=== PATIENT | female | born 1950 | race Caucasian/White ===

== ENCOUNTER 2016-07-01 11:20 | Observation (INO) | payer MEDICARE, OTHER ==
[2016-07-01] MEDS ORDERED: IPRATROPIUM-ALBUTEROL 3 ML NEB INHALATION STA (11:48)
[2016-07-01] MEDS ORDERED: methylPREDNISolone SOD SUCCI 125 MG/2 ML VIAL IV STA (11:48)
[2016-07-01] MEDS ORDERED: NITROGLYCERIN OINT 1 INCH/GM PACKET TOPICAL STA (11:48)
[2016-07-01] MEDS ORDERED: ASPIRIN 81 MG CHEW PO STA (11:48)
[2016-07-01] MEDS ORDERED: NITROGLYCERIN SL TABS 0.4 MG TAB SUBLINGUAL STA (11:49)
--- NOTE | 2016-07-01 11:52 | ED ---
General Adult HPI - General Chief complaint: Shortness of Breath Stated complaint: Sob/weak/dizzy Time Seen by Provider: 07/01/16 11:30 Source: patient, family, RN notes reviewed Mode of arrival: wheelchair - History of Present Illness Initial comments: This is a 65-year-old female who presents to the emergency department complaining of difficulty breathing and chest pain. Patient states she has a past medical history significant for COPD as well as high cholesterol and she states she also has a strong family history for heart disease. Patient states last night she started having difficulty breathing and having a cough. Patient states she started having epigastric pain late in the evening and this morning about 2 hours prior to arrival she started feeling significant chest heaviness. Patient denies any radiation of that heaviness. Patient denies any nausea. Patient denies any diaphoresis. Patient states she no longer has any epigastric tenderness. Patient denies any headache patient states she is a little bit lightheaded. Patient states she is supposed to have a nebulizer at home but her insurance won't pay for it so she only has an inhaler. Patient states yesterday the inhaler helped initially but is no longer helping and now she has chest pain. Patient states she continues to smoke. - Related Data Home Medications Medication Instructions Recorded Confirmed Albuterol Inhaler [Ventolin Hfa 2 puff INHALATION RT-Q6H PRN 07/01/16 07/01/16 Inhaler] Atorvastatin Calcium [Atorvastatin 20 mg PO DAILY 07/01/16 07/01/16 Calcium] Budesonide-Formot 160-4.5 Mcg 2 puff INHALATION RT-BID 07/01/16 07/01/16 [Symbicort 160-4.5 Mcg Inhaler] Escitalopram [Lexapro] 20 mg PO HS 07/01/16 07/01/16 Meloxicam [Meloxicam] 15 mg PO DAILY 07/01/16 07/01/16 Allergies Allergy/AdvReac Type Severity Reaction Status Date / Time codeine Allergy Nausea & Verified 07/01/16 12:04 Vomiting Tetanus Vaccines and Toxoid Allergy Swelling Verified 07/01/16 12:04 [Tetanus Vaccines & Toxoid] Review of Systems ROS Statement: Those systems with pertinent positive or pertinent negative responses have been documented in the HPI. ROS Other: All systems not noted in ROS Statement are negative. Past Medical History Past Medical History: Asthma, COPD, Hyperlipidemia Additional Past Medical History / Comment(s): Degenerative joint disease History of Any Multi-Drug Resistant Organisms: None Reported Past Surgical History: Appendectomy, Hysterectomy Past Psychological History: Depression Smoking Status: Current every day smoker Past Alcohol Use History: None Reported Past Drug Use History: None Reported - Past Family History Father Family Medical History: Diabetes Mellitus Mother Family Medical History: Diabetes Mellitus, Hypertension General Exam - General Exam Comments Initial Comments: GENERAL: Patient is well-developed and well-nourished. Patient is nontoxic and well- hydrated and is in mild distress. ENT: Neck is soft and supple. No significant lymphadenopathy is noted. Oropharynx is clear. Moist mucous membranes. Neck has full range of motion without eliciting any pain. EYES: The sclera were anicteric and conjunctiva were pink and moist. Extraocular movements were intact and pupils were equal round and reactive to light. Eyelids were unremarkable. PULMONARY: She has diminished breath sounds throughout CARDIOVASCULAR: There is a regular rate and rhythm without any murmurs gallops or rubs. ABDOMEN: Soft and nontender with normal bowel sounds. No palpable organomegaly was noted. There is no palpable pulsatile mass. SKIN: Skin is clear with no lesions or rashes and otherwise unremarkable. NEUROLOGIC: Patient is alert and oriented x3. Cranial nerves II through XII are grossly intact. Motor and sensory are also intact. Normal speech, volume and content. Symmetrical smile. MUSCULOSKELETAL: Normal extremities with adequate strength and full range of motion. LYMPHATICS: No significant lymphadenopathy is noted PSYCHIATRIC: Normal psychiatric evaluation. Course Vital Signs 07/01/16 07/01/16 07/01/16 11:26 12:24 12:25 Temperature 96.9 F L Pulse Rate 76 58 L 63 Respiratory 26 H 22 Rate Blood Pressure 149/69 167/73 O2 Sat by Pulse 100 100 Oximetry 07/01/16 12:36 Temperature Pulse Rate 60 Respiratory Rate Blood Pressure O2 Sat by Pulse Oximetry Medical Decision Making - Medical Decision Making EKG shows sinus rhythm with frequent PVCs in a bigeminy pattern. Patient's rate is 79 bpm. It was on a 22 QRS is 90 QT interval 392 QTC is 449. Patient' s EKG shows no ST segment elevation or depression or T wave abnormalities are noted. - Lab Data Result diagrams: 07/01/16 12:25 07/01/16 12:25 Lab Results 07/01/16 07/01/16 07/01/16 Range/Units 12:25 12:25 12:25 WBC 4.8 (3.8-10.6) k/uL RBC 4.76 (3.80-5.40) m/uL Hgb 15.7 (11.4-16.0) gm/dL Hct 47.0 H (34.0-46.0) % MCV 98.7 (80.0-100.0) fL MCH 33.1 (25.0-35.0) pg MCHC 33.5 (31.0-37.0) g/dL RDW 12.8 (11.5-15.5) % Plt Count 212 (150-450) k/uL Neutrophils % 57 % Lymphocytes % 28 % Monocytes % 5 % Eosinophils % 6 % Basophils % 1 % Neutrophils # 2.7 (1.3-7.7) k/uL Lymphocytes # 1.3 (1.0-4.8) k/uL Monocytes # 0.2 (0-1.0) k/uL Eosinophils # 0.3 (0-0.7) k/uL Basophils # 0.1 (0-0.2) k/uL PT (9.0-12.0) sec INR (<1.1) APTT (22.0-30.0) sec Sodium 135 L (137-145) mmol/L Potassium 4.6 (3.5-5.1) mmol/L Chloride 102 (98-107) mmol/L Carbon Dioxide 22 (22-30) mmol/L Anion Gap 11 mmol/L BUN 8 (7-17) mg/dL Creatinine 0.78 (0.52-1.04) mg/dL Est GFR (MDRD) Af Amer >60 (>60 ml/min/1.73 sqM) Est GFR (MDRD) Non-Af >60 (>60 ml/min/1.73 sqM) Glucose 93 (74-99) mg/dL Calcium 10.0 (8.4-10.2) mg/dL Total Bilirubin 1.8 H (0.2-1.3) mg/dL AST 26 (14-36) U/L ALT 25 (9-52) U/L Alkaline Phosphatase 78 (38-126) U/L Total Creatine Kinase 68 (30-135) U/L CK-MB (CK-2) 0.6 (0.0-2.4) ng/mL CK-MB (CK-2) Rel Index 0.9 Troponin I <0.012 (0.000-0.034) ng/mL Total Protein 6.8 (6.3-8.2) g/dL Albumin 4.2 (3.5-5.0) g/dL 07/01/16 Range/Units 12:25 WBC (3.8-10.6) k/uL RBC (3.80-5.40) m/uL Hgb (11.4-16.0) gm/dL Hct (34.0-46.0) % MCV (80.0-100.0) fL MCH (25.0-35.0) pg MCHC (31.0-37.0) g/dL RDW (11.5-15.5) % Plt Count (150-450) k/uL Neutrophils % % Lymphocytes % % Monocytes % % Eosinophils % % Basophils % % Neutrophils # (1.3-7.7) k/uL Lymphocytes # (1.0-4.8) k/uL Monocytes # (0-1.0) k/uL Eosinophils # (0-0.7) k/uL Basophils # (0-0.2) k/uL PT 10.9 (9.0-12.0) sec INR 1.1 (<1.1) APTT 22.2 (22.0-30.0) sec Sodium (137-145) mmol/L Potassium (3.5-5.1) mmol/L Chloride (98-107) mmol/L Carbon Dioxide (22-30) mmol/L Anion Gap mmol/L BUN (7-17) mg/dL Creatinine (0.52-1.04) mg/dL Est GFR (MDRD) Af Amer (>60 ml/min/1.73 sqM) Est GFR (MDRD) Non-Af (>60 ml/min/1.73 sqM) Glucose (74-99) mg/dL Calcium (8.4-10.2) mg/dL Total Bilirubin (0.2-1.3) mg/dL AST (14-36) U/L ALT (9-52) U/L Alkaline Phosphatase (38-126) U/L Total Creatine Kinase (30-135) U/L CK-MB (CK-2) (0.0-2.4) ng/mL CK-MB (CK-2) Rel Index Troponin I (0.000-0.034) ng/mL Total Protein (6.3-8.2) g/dL Albumin (3.5-5.0) g/dL Critical Care Time Critical Care Time: Yes Total Critical Care Time: 35 Disposition Clinical Impression: Unstable angina, COPD with acute exacerbation Disposition: ADMITTED IP TO THIS HOSP Referrals: Lyn Durán MD [Primary Care Provider] - 1-2 days Time of Disposition: 14:02
[2016-07-01 12:38] LABS: Basophils # (A) 0.1 k/uL (0-0.2); Basophils % (A) 1 %; CH 33.9; CHCM 34.5; Eosinophils # (A) 0.3 k/uL (0-0.7); Eosinophils % (A) 6 %; HDW 2.21; HGB 15.7 gm/dL (11.4-16.0); Luc # (Auto) 0.13; Luc % (Auto) 3; Lymphocytes # (A) 1.3 k/uL (1.0-4.8); Lymphocytes % (A) 28 %; MCH 33.1 pg (25.0-35.0); MCHC 33.5 g/dL (31.0-37.0); MCV 98.7 fL (80.0-100.0); Mean Platelet Volume 7.1; Monocytes # (A) 0.2 k/uL (0-1.0); Monocytes % (A) 5 %; Neutrophils # (A) 2.7 k/uL (1.3-7.7); Neutrophils % (A) 57 %; RBC 4.76 m/uL (3.80-5.40); RDW 12.8 % (11.5-15.5); WBC 4.8 k/uL (3.8-10.6); WBC (Perox) 5.31
[2016-07-01 12:47] LABS: ALT 25 U/L (9-52); AST 26 U/L (14-36); Alkaline Phosphatase 78 U/L (38-126); Anion Gap 11 mmol/L; Blood Urea Nitrogen 8 mg/dL (7-17); Carbon Dioxide 22 mmol/L (22-30); Chloride 102 mmol/L (98-107); Glucose 93 mg/dL (74-99); Non-African American GFR(MDRD) >60 (>60 ml/min/1.73 sqM); Potassium 4.6 mmol/L (3.5-5.1); Sodium 135 mmol/L (137-145); Total Bilirubin 1.8 mg/dL (0.2-1.3); Total Protein 6.8 g/dL (6.3-8.2)
[2016-07-01 12:50] LABS: INR 1.1 (<1.1); Partial Thromboplastin Time 22.2 sec (22.0-30.0); Prothrombin Time 10.9 sec (9.0-12.0)
--- NOTE | 2016-07-01 13:01 | XR ---
EXAMINATION TYPE: XR chest 2V DATE OF EXAM: 07/01/2016 12:58 PM COMPARISON: 03/29/2016 HISTORY: Shortness of breath FINDINGS: The lungs are clear and there is no pneumothorax, pleural effusion, or focal pneumonia. Arthropathy of the AC joints. Hyperinflation suggests COPD. Hypertrophic and degenerative change of the spine. IMPRESSION: 1. No acute process.
[2016-07-01 13:08] LABS: Creatine Kinase 68 U/L (30-135)
[2016-07-01 13:22] LABS: Creatine Kinase MB 0.6 ng/mL (0.0-2.4); Troponin I <0.012 ng/mL (0.000-0.034)
[2016-07-01] MEDS ORDERED: NITROGLYCERIN SL TABS 0.4 MG TAB SUBLINGUAL PRN (14:08)
[2016-07-01] MEDS ORDERED: HEPARIN SODIUM,PORCINE 5,000 UNIT/ML 1 ML VIAL IV ONE (14:11)
[2016-07-01] MEDS ORDERED: HEPARIN SODIUM,PORCINE/D5W PMX 25,000 UNIT in DEXTROSE/WATER 1 500ML.BAG IV SCH (14:15)
[2016-07-01] MEDS ORDERED: HEPARIN SODIUM,PORCINE 5,000 UNIT/ML 1 ML VIAL IV PRN (14:17)
[2016-07-01] MEDS: IPRATROPIUM-ALBUTEROL 3 ML NEB INHALATION SCH ×2 (15:22→19:47)
[2016-07-01 19:26] LABS: Creatine Kinase 46 U/L (30-135)
[2016-07-01] MEDS: methylPREDNISolone SOD SUCCI 125 MG/2 ML VIAL IV SCH (19:38)
[2016-07-01 19:39] LABS: Creatine Kinase MB 0.4 ng/mL (0.0-2.4); Troponin I <0.012 ng/mL (0.000-0.034)
[2016-07-01] MEDS ORDERED: IPRATROPIUM-ALBUTEROL 3 ML NEB INHALATION PRN (20:01)
[2016-07-02] MEDS: methylPREDNISolone SOD SUCCI 125 MG/2 ML VIAL IV SCH ×4 (01:07→20:41)
[2016-07-02 01:22] LABS: Creatine Kinase 45 U/L (30-135)
[2016-07-02 01:35] LABS: Creatine Kinase MB 0.6 ng/mL (0.0-2.4); Troponin I <0.012 ng/mL (0.000-0.034)
[2016-07-02 07:26] LABS: Cholesterol 143 mg/dL (<200); HDL Cholesterol 87 mg/dL (40-60); Triglycerides 42 mg/dL (<150)
[2016-07-02] MEDS: IPRATROPIUM-ALBUTEROL 3 ML NEB INHALATION SCH ×4 (08:50→20:58)
[2016-07-02] MEDS: ASPIRIN 325 MG TAB PO SCH (10:04)
[2016-07-02] MEDS: ACETAMINOPHEN TAB 325 MG TAB PO PRN (10:50)
[2016-07-02] MEDS ORDERED: CARVEDILOL 3.125 MG TAB PO SCH (17:30)
--- NOTE | 2016-07-02 19:27 | P.HPIM ---
History of Present Illness H&P Date: 07/02/16 Chief Complaint: Chest pain 65-year-old female with history of tobacco use comes into the hospital with complaints of chest pain episode that initially got her concerned 48 hours prior to admission. Patient was apparently resting in bed stated to have a pressure in her midsternal region was associated with some palpitations and some numbness across her arms. That pain went away however patient continued to have intermittent episodes of chest pressure over the last 24 hours with concern for myocardial and a pain patient came in the hospital for further evaluation. Patient does state that there is one kind of pain that is worsened with deep breathing and cough. However during the hospital physician patient an episode of chest pain was given nitroglycerin sublingual which relieved the pain immediately. In the ER EKG was reviewed did not have any ST-T wave changes however patient was noted to have multiple PVCs. Patient states to have premature heart disease in the family continues to smoke at baseline patient is only able to walk about 1 block. Patient apparently has had a stress test 2 years ago however was not able to attain her maximum heart rate patient apparently stopped the stress test and left against medical advise at that time Review of Systems All systems: negative (Noted in HPI) Past Medical History Past Medical History: Asthma, COPD, Hyperlipidemia Additional Past Medical History / Comment(s): Degenerative joint disease History of Any Multi-Drug Resistant Organisms: None Reported Past Surgical History: Appendectomy, Hysterectomy, Tonsillectomy Past Anesthesia/Blood Transfusion Reactions: No Reported Reaction Past Psychological History: Depression Additional Psychological History / Comment(s): AT TIME OF THIS ADMIT,PT DENIES FEELING DEPRESSED, NO SUICIDAL THOUGHTS. PT RECENTLY MOVED TO [facility]. Smoking Status: Current every day smoker Past Alcohol Use History: None Reported Additional Past Alcohol Use History / Comment(s): STARTED SMOKING 1978, SMOKES AVER 1 PPD Past Drug Use History: None Reported - Past Family History Father Family Medical History: Diabetes Mellitus Mother Family Medical History: Diabetes Mellitus, Hypertension Medications and Allergies Home Medications Medication Instructions Recorded Confirmed Type Albuterol Inhaler [Ventolin Hfa 2 puff INHALATION RT-Q6H PRN 07/01/16 07/01/16 History Inhaler] Atorvastatin Calcium [Atorvastatin 20 mg PO DAILY 07/01/16 07/01/16 History Calcium] Budesonide-Formot 160-4.5 Mcg 2 puff INHALATION RT-BID 07/01/16 07/01/16 History [Symbicort 160-4.5 Mcg Inhaler] Escitalopram [Lexapro] 20 mg PO HS 07/01/16 07/01/16 History Meloxicam [Meloxicam] 15 mg PO DAILY 07/01/16 07/01/16 History Allergies Allergy/AdvReac Type Severity Reaction Status Date / Time codeine Allergy Nausea & Verified 07/01/16 12:04 Vomiting Tetanus Vaccines and Toxoid Allergy Swelling Verified 07/01/16 12:04 [Tetanus Vaccines & Toxoid] Physical Exam Vitals: Vital Signs Temp Pulse Pulse Resp BP BP Pulse Ox 07/02/16 15:43 98.7 F 70 16 106/53 95 07/02/16 14:41 68 07/02/16 14:25 68 07/02/16 11:30 99 F 64 16 120/48 95 07/02/16 09:07 72 07/02/16 08:53 72 07/02/16 07:44 98.6 F 73 16 114/54 93 L 07/02/16 04:17 98.0 F 77 16 102/55 96 07/02/16 03:53 96 16 07/02/16 00:02 98.2 F 80 16 108/57 97 07/02/16 00:00 70 16 07/01/16 20:30 97.7 F 69 16 127/60 96 07/01/16 19:59 76 07/01/16 19:47 75 07/01/16 19:32 70 14 113/59 100 Intake and Output 07/02/16 07/02/16 07/02/16 06:59 14:59 22:59 Intake Total 236 Balance 236 Intake: Oral 236 Other: Voiding Method Toilet Toilet Toilet Physical exam Gen. appearance oriented 3 in no distress Neck is supple no JVD Lungs good air movement diffuse expiratory wheezing appreciated intermittently Heart S1-S2 heard regular rate and rhythm no murmurs appreciated Abdomen is soft nontender no organomegaly bowel sounds are intact Neurologically cranial nerves II-12 grossly intact no focal motor or sensory deficits noted Skin no abnormalities appreciated Results CBC & Chem 7: 07/01/16 12:25 07/01/16 12:25 Labs: Abnormal Lab Results - Last 24 Hours (Table) 07/01/16 07/02/16 07/02/16 Range/Units 21:54 06:30 06:30 APTT 48.6 H 43.0 H (22.0-30.0) sec HDL Cholesterol 87 H (40-60) mg/dL Thrombosis Risk Factor Assmnt - Choose All That Apply Any of the Below Risk Factors Present?: Yes Each Factor Represents 1 point: Abnormal pulmonary function (COPD) Other Risk Factors: Yes Each Risk Factor Represents 2 Points: Age 61-74 years Other congenital or acquired thrombophilia - If yes, enter type in comment: No Thrombosis Risk Factor Assessment Total Risk Factor Score: 3 Thrombosis Risk Factor Assessment Level: Moderate Risk Assessment and Plan Plan: #1 atypical chest pain rule out ACS #2 acute 8 mild exacerbation of COPD #3 dyslipidemia #4 ongoing tobacco use #5 history of hypertension #6 anxiety Plan Await cardiology recs. There appears to be some typical nature of the initial chest pain however current pain appears to be atypical and pleuritic in nature. We'll give the patient a dose of Solu-Medrol. Continue ongoing care. Home medication will be reconciled. Patient is currently on IV heparin. GI prophylaxis will be initiated.
[2016-07-02] MEDS ORDERED: HEPARIN SODIUM,PORCINE 5,000 UNIT/ML 1 ML VIAL IV PRN (20:17)
[2016-07-02] MEDS ORDERED: REGADENOSON 0.4 MG/5 ML SYRINGE IV ONE (20:30)
--- NOTE | 2016-07-02 20:49 | CONS ---
DATE OF CONSULTATION: Ashley is a 65-year-old female who presented with chest discomfort that started when she was resting. This was associated with shortness of breath and pounding in the chest. This may have lasted all night, but it was relieved with nitroglycerin. Two sets of cardiac enzymes are normal. Her 12-lead ECG shows sinus mechanism with ventricular bigeminy. The PVCs have an upright QRS in the inferior leads, left bundle branch block morphology with a notching on the down slope and upright QRS in lead I, but negative in aVL. It is slightly more negative in aVR than in aVL. She is completely pain-free at this time. PAST MEDICAL HISTORY: She is a current smoker with a past history of COPD. She also has a history of dyslipidemia and is on atorvastatin. FAMILY HISTORY: Premature coronary disease, diabetes. SOCIAL HISTORY: No alcohol use. She continues to smoke. SURGICAL HISTORY: 1. Appendectomy. 2. Hysterectomy. 3. Tonsillectomy. Medications at home included atorvastatin and inhalers. ALLERGIES: CODEINE and TETANUS VACCINE. On examination, [place] [address] [place]. Heart rate 69 beats per minute. Afebrile. Head and neck examination is normal. Breath sounds are reduced bilaterally, especially at the bases. Heart sounds S1, S2 are normal. Abdomen is soft, nontender. Extremities are warm. No edema. IMPRESSION: 1. Epigastric and midsternal chest discomfort that was relieved with nitroglycerin. 2. Pounding in the chest with ventricular bigeminy without protracted premature ventricular contractions. 3. Current history of smoking. 4. Normal cardiac enzymes so far. SUGGEST: Proceed with Lexiscan Cardiolite stress test tomorrow. If this is normal, then one would have to implicate the ventricular bigeminy as the cause of her discomfort.
[2016-07-02] MEDS: SYMBICORT 160-4.5 MCG INHALER INHALATION SCH (20:58)
[2016-07-03] MEDS: methylPREDNISolone SOD SUCCI 40 MG/ML 1 ML VIAL IV SCH ×2 (01:28→10:57)
[2016-07-03] MEDS: IPRATROPIUM-ALBUTEROL 3 ML NEB INHALATION SCH (07:27)
[2016-07-03] MEDS: SYMBICORT 160-4.5 MCG INHALER INHALATION SCH (07:27)
[2016-07-03] MEDS ORDERED: AMINOPHYLLINE 500 MG/20 ML VIAL IV PRN (08:00)
[2016-07-03 08:43] VITALS: RESP 18
[2016-07-03] MEDS ORDERED: NICOTINE 14MG/24HR PATCH TRANSDERM SCH (09:00)
--- NOTE | 2016-07-03 10:49 | NM ---
EXAMINATION TYPE: NM stress lexiscan cardiolite DATE OF EXAM: 07/03/2016 10:45 AM COMPARISON: NONE HISTORY: Precordial chest pain TECHNIQUE: After the intravenous administration of 11.0 mCi Tc 99m Sestamibi - Cardiolite resting SP ECT images acquired 45 minutes post injection. The patient received 0.4mg Lexiscan, 27.4 mCi Tc 99m Sestamibi - Stress images obtained [address] injection FINDINGS: Review of stress and rest SPECT images demonstrates no distinct perfusion abnormality. Gated analysi s shows normal wall motion with an estimated left ventricular ejection fraction of 46 %. IMPRESSION: No scintigraphic evidence for reversible ischemia.
[2016-07-03] MEDS: ASPIRIN 325 MG TAB PO SCH (10:56)
[2016-07-03] MEDS: ACETAMINOPHEN TAB 325 MG TAB PO PRN (10:57)
--- NOTE | 2016-07-03 11:28 | EST ---
DATE OF SERVICE: 07/03/2016 AGE: 65Y SEX: F HT: 64" WT: 140 lbs. Lexiscan Cardiolite Stress Test *Heart Rate Blood Pressure *Rest: 60 Rest: 131/69 * *Max. Achieved: 112 Maximum BP: 153/74 85% PMHR: 133 100% PMHR: 157 *METS: - INDICATIONS: Chest pain. MEDICATIONS: - The test is being done to evaluate chest pains and shortness of breath. Baseline EKG showed sinus rhythm with normal OK interval and QRS duration, occasional PVCs were noted. A standard dose of Lexiscan was infused. EKGs taken during and after the infusion showed mild ST-T changes in the inferolateral leads, which are also present on the resting EKG. Patient did not experience any chest pain. FINAL IMPRESSION: 1. Nondiagnostic Lexiscan stress test because of baseline EKG abnormalities. 2. Report on the nuclear images to be given by the radiologist.
[2016-07-03 11:43] VITALS: BP 125/48; TEMP 97.7
[2016-07-03 12:08] VITALS: PULSE 59
[2016-07-03] MEDS ORDERED: REGADENOSON 0.4 MG/5 ML SYRINGE IV ONE (13:54)
--- NOTE | 2016-07-03 20:44 | P.DS ---
Providers Date of admission: 07/01/16 14:08 Attending physician: Sahra Rinaldi Primary care physician: Lyn [facility] Course: Chief Complaint: Chest pain 65-year-old female with history of tobacco use comes into the hospital with complaints of chest pain episode that initially got her concerned 48 hours prior to admission. Patient was apparently resting in bed stated to have a pressure in her midsternal region was associated with some palpitations and some numbness across her arms. That pain went away however patient continued to have intermittent episodes of chest pressure over the last 24 hours with concern for myocardial and a pain patient came in the hospital for further evaluation. Patient does state that there is one kind of pain that is worsened with deep breathing and cough. However during the hospital physician patient an episode of chest pain was given nitroglycerin sublingual which relieved the pain immediately. In the ER EKG was reviewed did not have any ST-T wave changes however patient was noted to have multiple PVCs. Patient states to have premature heart disease in the family continues to smoke at baseline patient is only able to walk about 1 block. Patient apparently has had a stress test 2 years ago however was not able to attain her maximum heart rate patient apparently stopped the stress test and left against medical advise at that time Physical Exam Vitals: Physical exam Gen. appearance oriented 3 in no distress Neck is supple no JVD Lungs good air movement diffuse expiratory wheezing appreciated intermittently Heart S1-S2 heard regular rate and rhythm no murmurs appreciated Abdomen is soft nontender no organomegaly bowel sounds are intact Neurologically cranial nerves II-12 grossly intact no focal motor or sensory deficits noted Skin no abnormalities appreciated Assessment and Plan Plan: #1 atypical chest pain rule out ACS #2 acute 8 mild exacerbation of COPD #3 dyslipidemia #4 ongoing tobacco use #5 history of hypertension #6 anxiety Pt was symptom free on the day of discharge Underwent a stress test, lexiscan, negative. recommended to follow up with Dr Polo for underlying tachycardia for holter monitering outpatient basis. Discharged in a stable condition . Plan - Discharge Summary Discharge Medication List Albuterol Inhaler [Ventolin Hfa Inhaler] 2 puff INHALATION RT-Q6H PRN 07/01/16 [ History] Atorvastatin Calcium 20 mg PO DAILY 07/01/16 [History] Budesonide-Formot 160-4.5 Mcg [Symbicort 160-4.5 Mcg Inhaler] 2 puff INHALATION RT-BID 07/01/16 [History] Escitalopram [Lexapro] 20 mg PO HS 07/01/16 [History] Meloxicam 15 mg PO DAILY 07/01/16 [History] Follow up Appointment(s)/Referral(s): Jose Polo MD [STAFF PHYSICIAN] - 4 Weeks Lyn Durán MD [Primary Care Provider] - 1-2 days Patient Instructions/Handouts: Chest Pain (DC) Activity/Diet/Wound Care/Special Instructions: [facility] a 48 hour holter monitor. pt is to brick picker monitor in 3 weeks between Jul 21-2016. follow up with Dr. Polo in 4 weeks. Discharge Disposition: HOME SELF-CARE
== END 2016-07-03 17:00 | disposition home or self-care (01) ==
LOC: EC 11:20 → 3OBS 14:08
PROVIDERS: ADMIT Hospitalist; ATTEND Hospitalist
DX: R07.89 Other chest pain (principal); J44.1 Chronic obstructive pulmonary disease with (acute) exacerbation; J45.909 Unspecified asthma, uncomplicated; E78.5 Hyperlipidemia, unspecified; F17.200 Nicotine dependence, unspecified, uncomplicated; I10 Essential (primary) hypertension; F41.9 Anxiety disorder, unspecified; E78.00 Pure hypercholesterolemia, unspecified; F32.9 Major depressive disorder, single episode, unspecified; Z79.899 Other long term (current) drug therapy; Z79.51 Long term (current) use of inhaled steroids; Z88.5 Allergy status to narcotic agent; Z88.7 Allergy status to serum and vaccine; Z82.49 Family history of ischemic heart disease and other diseases of the circulatory system; Z83.3 Family history of diabetes mellitus; I44.7 Left bundle-branch block, unspecified; R00.8 Other abnormalities of heart beat
CPT/HCPCS: 96376 ×5; 96375 ×2; 99291 ×2; 93005 ×2; 96366 ×4; 96365; 36415; 94640 ×5; 94760; 93017; 84439; 80061; 80053; 84443; 82550 ×2; 82553 ×2; 84484 ×2; 85025; 85610; 85730 ×2; 71020; 78452; G0378 ×3; A9500; S4990; J1644 ×2; J2920; J2930 ×2; J2785

== ENCOUNTER 2016-07-05 08:37 | Emergency (ER) | payer MEDICARE, OTHER ==
--- NOTE | 2016-07-05 09:09 | ED ---
Chest Pain HPI - General Chief Complaint: Chest Pain Stated Complaint: Chest Pain Time Seen by Provider: 07/05/16 08:45 Source: patient, RN notes reviewed Mode of arrival: EMS Limitations: no limitations - History of Present Illness Initial Comments: This patient is a 65-year-old woman presenting with substernal chest pain. She had been admitted here for the same approximate 4 days ago, was seen by cardiology and had a stress test and discharged 2 days ago. She states that the pain had recurred this morning a number of hours ago, and that when it didn' t resolve she decided to be seen here again. The patient describes the pain as heavy, constant, moderate, and without worsening or relieving factors. Patient denies any angina type symptoms accompanying the pain. MD Complaint: chest pain Onset/Timin -: hour(s) Onset: during rest Pain Location: substernal Pain Radiation: none Severity: moderate Quality: heaviness Consistency: constant Improves With: nothing Worsens With: nothing - Related Data Home Medications Medication Instructions Recorded Confirmed Albuterol Inhaler [Ventolin Hfa 2 puff INHALATION RT-Q6H PRN 07/01/16 07/01/16 Inhaler] Atorvastatin Calcium 20 mg PO DAILY 07/01/16 07/01/16 Budesonide-Formot 160-4.5 Mcg 2 puff INHALATION RT-BID 07/01/16 07/01/16 [Symbicort 160-4.5 Mcg Inhaler] Escitalopram [Lexapro] 20 mg PO HS 07/01/16 07/01/16 Meloxicam 15 mg PO DAILY 07/01/16 07/01/16 Previous Rx's Medication Instructions Recorded Nitroglycerin Sl Tabs [Nitrostat] 0.4 mg SUBLINGUAL Q5M PRN #25 tab 07/05/16 Allergies Allergy/AdvReac Type Severity Reaction Status Date / Time codeine Allergy Nausea & Verified 07/05/16 08:43 Vomiting Tetanus Vaccines and Toxoid Allergy Swelling Verified 07/05/16 08:43 [Tetanus Vaccines & Toxoid] Review of Systems ROS Statement: Those systems with pertinent positive or pertinent negative responses have been documented in the HPI. ROS Other: All systems not noted in ROS Statement are negative. Constitutional: Denies: fever, chills Respiratory: Denies: cough, dyspnea Cardiovascular: Reports: chest pain. Denies: palpitations, dyspnea on exertion , orthopnea, edema, syncope Gastrointestinal: Denies: abdominal pain, nausea, vomiting Genitourinary: Denies: dysuria, hematuria Musculoskeletal: Denies: back pain Skin: Denies: rash Neurological: Denies: headache, weakness, numbness EKG Findings - EKG Results: EKG: interpreted by YESENIA THOMAS, sinus rhythm (Rate approximately 61 bpm), normal axis, normal QRS, normal ST/T - LA, Pacemaker, Normal: Normal tracing: normal tracing Past Medical History Past Medical History: COPD, Hyperlipidemia Additional Past Medical History / Comment(s): Degenerative joint disease History of Any Multi-Drug Resistant Organisms: None Reported Past Surgical History: Appendectomy, Hysterectomy, Tonsillectomy Past Anesthesia/Blood Transfusion Reactions: No Reported Reaction Past Psychological History: Anxiety, Depression Additional Psychological History / Comment(s): AT TIME OF THIS ADMIT,PT DENIES FEELING DEPRESSED, NO SUICIDAL THOUGHTS. PT RECENTLY MOVED TO [facility]. Smoking Status: Current every day smoker Past Alcohol Use History: None Reported Additional Past Alcohol Use History / Comment(s): STARTED SMOKING 1978, SMOKES AVER 1 PPD Past Drug Use History: None Reported - Past Family History Father Family Medical History: Diabetes Mellitus Mother Family Medical History: Diabetes Mellitus, Hypertension General Exam Limitations: no limitations General appearance: alert, in no apparent distress Head exam: Present: atraumatic, normocephalic Eye exam: Present: normal appearance. Absent: scleral icterus, conjunctival injection ENT exam: Present: normal oropharynx Neck exam: Present: normal inspection, full ROM Respiratory exam: Present: normal lung sounds bilaterally. Absent: respiratory distress, wheezes, rales, rhonchi Cardiovascular Exam: Present: regular rate, normal rhythm, normal heart sounds. Absent: systolic murmur, diastolic murmur, rubs, gallop GI/Abdominal exam: Present: soft. Absent: distended, tenderness, guarding, rebound, rigid Extremities exam: Present: normal inspection, normal capillary refill. Absent: pedal edema, calf tenderness Back exam: Present: normal inspection. Absent: CVA tenderness (R), CVA tenderness (L) Neurological exam: Present: alert Skin exam: Present: warm, dry, intact, normal color. Absent: rash Course Vital Signs 01/28/17 01/28/17 01/28/17 08:40 09:10 09:40 Temperature 98.7 F Pulse Rate 71 60 60 Respiratory 18 18 16 Rate Blood Pressure 133/71 128/75 142/66 O2 Sat by Pulse 96 99 98 Oximetry 07/05/16 07/05/16 07/05/16 10:10 10:40 11:10 Temperature Pulse Rate 58 L 56 L 62 Respiratory 16 18 16 Rate Blood Pressure 166/68 137/69 153/69 O2 Sat by Pulse 99 99 100 Oximetry 07/05/16 07/05/16 11:44 12:24 Temperature 98.3 F Pulse Rate 58 L 62 Respiratory 18 18 Rate Blood Pressure 156/74 147/72 O2 Sat by Pulse 100 100 Oximetry Chest Pain MDM - MDM This patient is a 65-year-old woman who did have an episode of chest pain that is completely resolved. Her workup is negative, including a normal EKG and negative cardiac enzymes. Review of the patient's record reveals that she did have a stress test, but this was not entirely diagnostic. I discussed the need for the patient to probably have cardiac catheterization, and discussed admitting her in the hospital. At this point the patient is declining this and states she wants follow-up to arrange this as an outpatient. She does agree to return if any of the symptoms recur and I discussed other return parameters. Disposition Clinical Impression: Chest pain Disposition: HOME SELF-CARE Condition: Fair Instructions: Chest Pain (ED) Prescriptions: Nitroglycerin Sl Tabs [Nitrostat] 0.4 mg SUBLINGUAL Q5M PRN #25 tab PRN Reason: Chest Pain Referrals: Lyn Durán MD [Primary Care Provider] - 1-2 days Jose Polo MD [STAFF PHYSICIAN] - 1-2 days
[2016-07-05 09:26] LABS: Basophils % (A) 0 %; CH 34.1; CHCM 34.8; Eosinophils # (A) 0.1 k/uL (0-0.7); Eosinophils % (A) 2 %; HCT 44.9 % (34.0-46.0); HDW 2.21; Luc # (Auto) 0.05; Luc % (Auto) 1; Lymphocytes # (A) 1.3 k/uL (1.0-4.8); Lymphocytes % (A) 24 %; MCH 32.9 pg (25.0-35.0); MCHC 33.4 g/dL (31.0-37.0); MCV 98.3 fL (80.0-100.0); Mean Platelet Volume 7.7; Monocytes # (A) 0.4 k/uL (0-1.0); Monocytes % (A) 8 %; Neutrophils # (A) 3.5 k/uL (1.3-7.7); Neutrophils % (A) 65 %; RBC 4.57 m/uL (3.80-5.40); RDW 12.9 % (11.5-15.5); WBC 5.3 k/uL (3.8-10.6); WBC (Perox) 5.24
[2016-07-05 09:39] LABS: ALT 37 U/L (9-52); AST 18 U/L (14-36); Alkaline Phosphatase 66 U/L (38-126); Amylase 46 U/L (30-110); Anion Gap 8 mmol/L; Blood Urea Nitrogen 14 mg/dL (7-17); Carbon Dioxide 26 mmol/L (22-30); Chloride 100 mmol/L (98-107); Glucose 87 mg/dL (74-99); Magnesium 2.1 mg/dL (1.6-2.3); Non-African American GFR(MDRD) >60 (>60 ml/min/1.73 sqM); Potassium 3.7 mmol/L (3.5-5.1); Sodium 134 mmol/L (137-145); Total Bilirubin 1.1 mg/dL (0.2-1.3); Total Protein 5.9 g/dL (6.3-8.2)
[2016-07-05 09:49] LABS: Creatine Kinase 44 U/L (30-135); INR 1.1 (<1.1); Prothrombin Time 10.6 sec (9.0-12.0)
[2016-07-05] MEDS ORDERED: ACETAMINOPHEN TAB 325 MG TAB PO STA (09:53)
--- NOTE | 2016-07-05 09:56 | XR ---
EXAMINATION TYPE: XR chest 1V portable DATE OF EXAM: 07/05/2016 9:45 AM COMPARISON: 07/01/2016 HISTORY: Chest pain TECHNIQUE: Single frontal view of the chest is obtained. FINDINGS: There is no focal air space opacity, pleural effusion, or pneumothorax seen. The cardiac silhouette size is within normal limits. The osseous structures are intact. Hyperinflation suggests COPD. Borderline to mild cardiomegaly. No overt failure. IMPRESSION: 1. Correlate for COPD and mild cardiomegaly. No acute infiltrate.
[2016-07-05 10:02] LABS: Creatine Kinase MB 0.5 ng/mL (0.0-2.4); Troponin I <0.012 ng/mL (0.000-0.034)
[2016-07-05 11:57] VITALS: RESP 18
[2016-07-05 12:25] VITALS: BP 147/72; PULSE 62; TEMP 98.3
== END 2016-07-05 12:25 | disposition home or self-care (01) ==
LOC: EC 08:37
DX: R07.9 Chest pain, unspecified (principal); J44.9 Chronic obstructive pulmonary disease, unspecified; E78.5 Hyperlipidemia, unspecified; M19.90 Unspecified osteoarthritis, unspecified site; F17.200 Nicotine dependence, unspecified, uncomplicated; Z79.1 Long term (current) use of non-steroidal anti-inflammatories (NSAID); Z79.51 Long term (current) use of inhaled steroids; Z79.899 Other long term (current) drug therapy; Z88.5 Allergy status to narcotic agent; Z88.7 Allergy status to serum and vaccine
CPT/HCPCS: 36415; 71010; 80053; 82150; 82550; 82553; 83690; 83735; 84484; 85025; 85379; 85610; 85730; 93005; 99285

== ENCOUNTER → 2016-12-02 | Outpatient (CLI) | payer MEDICARE, OTHER ==
--- NOTE | 2016-12-02 14:00 | MM ---
Reason for exam: follow-up at short interval from prior study. Last mammogram was performed 6 months ago. History: Patient is postmenopausal. Physical Findings: Nurse did not find any significant physical abnormalities on exam. MG 3D Diag Mammo W/Cad RT CC, MLO, and ML view(s) were taken of the right breast. Prior study comparison: May 28, 2016, right breast MG 3d work up w/cad RT. May 13, 2016, bilateral MG 3d screening mammo w/cad. October 26, 2013, left breast MG work up mamm w CAD LT. The breast tissue is heterogeneously dense. This may lower the sensitivity of mammography. The previously seen superior asymmetric density does not persist. No significant new findings when compared with previous films. These results were verbally communicated with the patient and result sheet given to the patient on 12/02/16. ASSESSMENT: Negative, BI-RAD 1 RECOMMENDATION: Return to routine screening mammogram schedule for both breasts. Manage on a clinical basis with regard to right breast pain. Back on schedule.
== END | disposition home or self-care (01) ==
LOC: RADMAMWWP 12:52
PROVIDERS: ATTEND Family Medicine
DX: R92.8 Other abnormal and inconclusive findings on diagnostic imaging of breast (principal)
CPT/HCPCS: G0206; G0279

== ENCOUNTER → 2017-09-04 | Outpatient (CLI) | payer MEDICARE, OTHER ==
--- NOTE | 2017-09-04 15:09 | XR ---
Bilateral hands HISTORY: Bilateral hand pain 3 views of each hand submitted on 6 images No comparisons Bone mineralization is reduced. There is remodeling of the radiocarpal joints. Some marginal spurring present at the carpometacarpal joints of the first digits. Alignment is maintained. No fracture or d islocation bilaterally. Soft tissue calcification lateral to the distal aspect of the second metacarp al of the left and right hand shows a nonaggressive appearance. Probable bone island present within t he distal phalanx of the third digit of the left hand. Some spurring present at the distal interphala ngeal joint of the second digit of the left greater than right hand. IMPRESSION: Mild osteoarthritic change. Osteopenia.
== END | disposition home or self-care (01) ==
LOC: RADXRMAIN 10:25
PROVIDERS: ATTEND Family Medicine
DX: M19.042 Primary osteoarthritis, left hand (principal); M19.041 Primary osteoarthritis, right hand; M85.842 Other specified disorders of bone density and structure, left hand; M85.841 Other specified disorders of bone density and structure, right hand

== ENCOUNTER 2017-11-24 11:01 | Day surgery (SDC) | payer MEDICARE, OTHER ==
[2017-11-19 09:20] VITALS: BMI 25.4
[~2017-11-24 11:01] MED LIST: LACTATED RINGERS 1,000 ML IV SCH; LIDOCAINE 1% 20 ML VIAL (10MG/ML) FOR IV START INTRADERMA PRN; MIDAZOLAM 2 MG/2 ML VIAL IV PRN
[2017-11-24 11:39] VITALS: TEMP 98.1
[2017-11-24] MEDS ORDERED: PROPOFOL 10 MG/ML 20 ML VIAL IV ONE (12:30)
[2017-11-24] MEDS ORDERED: LIDOCAINE 1% INJ 10MG/ML (20 ML MDV) ONE (12:30)
[2017-11-24 13:30] VITALS: PULSE 67; RESP 16
--- NOTE | 2017-11-24 13:49 | P.PCN ---
Date of Procedure: 11/24/17 Procedure(s) Performed: Procedure: Total colonoscopy. Preoperative diagnosis: Screening for neoplasia. Postoperative diagnosis: Exam within normal limits. Preparation: HalfLytely prep. Sedation: Was provided by anesthesia. Brief clinical history: The patient is a 66-year-old female who is scheduled for this evaluation for screening for neoplasia age being her risk factor. She has no abdominal complaints, bleeding or anemia. No family history of colon cancer. This would be her first colonoscopy. Procedure: With the patient on her left lateral decubitus position and after informed consent and adequate sedation, the perianal area was inspected and it did not show any fissures or fistulas. There were no masses felt on digital rectal examination. The Olympus CFQ 160L video colonoscope was then inserted in the rectum in the usual fashion and advanced to the cecum. The mucosa appeared healthy. No polyps or tumors were seen or any obvious diverticular disease or other pathology. I retroflexed the endoscope in the rectum before the endoscope was withdrawn. The patient tolerated the procedure well. Plan: The patient was reassured. She will follow-up with you as planned and I recommended repeat exam in 10 years.
[2017-11-24 13:52] VITALS: BP 140/81
== END 2017-11-24 13:53 | disposition home or self-care (01) ==
LOC: ORWHC2ENDO 11:01
DX: Z12.11 Encounter for screening for malignant neoplasm of colon (principal); I48.91 Unspecified atrial fibrillation; M19.90 Unspecified osteoarthritis, unspecified site; J44.9 Chronic obstructive pulmonary disease, unspecified; E78.5 Hyperlipidemia, unspecified; I20.9 Angina pectoris, unspecified; F17.200 Nicotine dependence, unspecified, uncomplicated; Z79.1 Long term (current) use of non-steroidal anti-inflammatories (NSAID); Z79.51 Long term (current) use of inhaled steroids; Z79.899 Other long term (current) drug therapy; Z88.7 Allergy status to serum and vaccine; Z88.5 Allergy status to narcotic agent
CPT/HCPCS: J2001; J2704; G0121

== ENCOUNTER 2018-03-16 09:10 | Inpatient (IN) | payer MEDICARE, OTHER ==
[2018-03-16] MEDS ORDERED: IV FLUID CONTINUATION 1,000 ML IV ONE (12:48)
[2018-03-16] MEDS ORDERED: MIDAZOLAM 2 MG/2 ML VIAL IV ONE (12:58)
[2018-03-16] MEDS ORDERED: fentaNYL (PF) 50 MCG/ML 2 ML AMP IV ONE (12:58)
[2018-03-16] MEDS ORDERED: LIDOCAINE 1% INJ 10MG/ML (20 ML MDV) SQ ONE (12:59)
[2018-03-16] MEDS ORDERED: IOPAMIDOL-370 125ML BTL INJ ONE (13:32)
[2018-03-16] MEDS: SODIUM CHLORIDE 0.9% 1,000 ML IV SCH (14:49)
[2018-03-16] MEDS ORDERED: RX INFO: IV CONTRAST WAS GIVEN 1 EACH MISC MISCELLANE PRN (14:57)
[2018-03-16] MEDS ORDERED: ALBUTEROL NEBULIZED 2.5 MG/3 ML INHALATION PRN (14:58)
--- NOTE | 2018-03-16 15:06 | CC ---
CARDIAC CATHETERIZATION REPORT This patient was admitted to the [facility] with the symptoms of nausea and vomiting. EKG showed inferior lateral T-wave inversions. Initial troponin was 3. Echocardiogram reveals small pericardial effusion. In view of the history of abnormal troponin, suggestive of possible non ST-segment elevation myocardial infarction. Patient was transferred to the [facility] for cardiac catheterization procedure. The right groin was prepped and draped in the usual manner and the skin was infiltrated with 2% Xylocaine. The right femoral artery was entered using Seldinger technique. A #6-Canadian sheath was placed in. Selective coronary angiography was then performed in multiple projections and the left ventricular pressures were obtained. Patient tolerated the procedure well. Moderate sedation was used. Total sedation time was 23 minutes. HEMODYNAMICS: Left ventricular end-diastolic pressure is 16 to 18 mmHg prior to angiography. No gradient is noted across the aortic valve. SELECTIVE CORONARY ANGIOGRAPHY: Left main coronary artery is normal and patent. LAD is a good caliber blood vessel and gives rise to good size diagonal branch. LAD and its branches are normal. Circumflex coronary artery is dominant in distribution and gives rise to the posterior descending and PLV branches which are normal. Right coronary artery is small and nondominant. Left ventriculography reveals mild degree of global hypokinesia with ejection fraction of 40%. IMPRESSION: This patient has normal coronary arteries. Her left ventriculography reveals a global hypokinesia suggestive of possible myocarditis. We will check the sedimentation rate, C-reactive protein and treat the patient with beta kayla as well as AMRIE inhibitor. MMODL / IJN: [id number] /
[2018-03-16] MEDS: PANTOPRAZOLE 40 MG TABLET PO SCH (15:24)
[2018-03-16] MEDS: ACETAMINOPHEN TAB 325 MG TAB PO PRN ×2 (15:24→20:18)
[2018-03-16 17:22] VITALS: RESP 18
[2018-03-16 17:22] LABS: Basophils % (A) 1 %; Eosinophils # (A) 0.1 k/uL (0-0.7); Eosinophils % (A) 1 %; HCT 39.6 % (34.0-46.0); HGB 13.5 gm/dL (11.4-16.0); Lymphocytes # (A) 1.9 k/uL (1.0-4.8); Lymphocytes % (A) 26 %; MCH 32.7 pg (25.0-35.0); MCHC 34.1 g/dL (31.0-37.0); Monocytes # (A) 0.7 k/uL (0-1.0); Monocytes % (A) 10 %; Neutrophils # (A) 4.4 k/uL (1.3-7.7); Neutrophils % (A) 61 %; Platelet Count 178 k/uL (150-450); RBC 4.13 m/uL (3.80-5.40); RDW 12.1 % (11.5-15.5); WBC 7.3 k/uL (3.8-10.6)
[2018-03-16 17:45] LABS: Albumin 3.3 g/dL (3.5-5.0); C Reactive Protein 6.1 mg/L (<10.0); Calcium 8.7 mg/dL (8.4-10.2); Magnesium 2.1 mg/dL (1.6-2.3); Potassium 4.2 mmol/L (3.5-5.1); Total Bilirubin 1.5 mg/dL (0.2-1.3); Total Protein 5.7 g/dL (6.3-8.2)
[2018-03-16 18:18] LABS: Erythrocyte Sedimentation Rate 11 mm/hr (0-20)
[2018-03-16] MEDS: METOPROLOL TARTRATE 12.5 MG TAB PO SCH (20:18)
[2018-03-16] MEDS: SYMBICORT 160-4.5 MCG INHALER INHALATION SCH (20:19)
[2018-03-16] MEDS ORDERED: PIPERACILLIN-TAZOBACTAM 3.375 GM in DEXTROSE/WATER 1 50ML.BAG IVPB STA (21:36)
--- NOTE | 2018-03-16 22:34 | XR ---
EXAMINATION TYPE: XR chest 2V DATE OF EXAM: 03/16/2018 COMPARISON: 07/05/2016 HISTORY: Fever TECHNIQUE: Frontal and lateral views of the chest are obtained. FINDINGS: Heart and mediastinum are normal. Lungs are clear of infiltrate. There is no pleural effus ion. There are chest leads. Bony thorax appears intact. IMPRESSION: Normal chest. No change.
[2018-03-16 23:06] LABS: Appearance,Urine Clear (Clear); Bacteria,Urine Rare /hpf; Bilirubin,Urine Negative (Negative); Blood,Urine Trace (Negative); Color,Urine Light Yellow; Glucose,Urine (UA) Negative (Negative); Ketones,Urine Negative (Negative); Leukocyte Esterase,Urine Negative (Negative); Mucus,Urine Rare /hpf; Nitrite,Urine Negative (Negative); PH, Urine 5.5 (5.0-8.0); Protein,Urine Negative (Negative); RBC,Urine <1 /hpf (0-5); Specific Gravity,Urine 1.014 (1.001-1.035); Squamous Epithelial Cell,Urine <1 /hpf (0-4); Urobilinogen,Urine <2.0 mg/dL (<2.0); WBC,Urine 1 /hpf (0-5)
[2018-03-17] MEDS: SODIUM CHLORIDE 0.9% 1,000 ML IV SCH (05:37)
[2018-03-17] MEDS: PANTOPRAZOLE 40 MG TABLET PO SCH ×2 (06:12→08:37)
[2018-03-17 06:16] LABS: Basophils % (A) 1 %; Eosinophils # (A) 0.1 k/uL (0-0.7); Eosinophils % (A) 1 %; HCT 41.3 % (34.0-46.0); Lymphocytes # (A) 1.6 k/uL (1.0-4.8); Lymphocytes % (A) 23 %; MCH 32.7 pg (25.0-35.0); MCHC 33.7 g/dL (31.0-37.0); Mean Platelet Volume 6.9; Monocytes # (A) 0.6 k/uL (0-1.0); Monocytes % (A) 8 %; Neutrophils # (A) 4.7 k/uL (1.3-7.7); Neutrophils % (A) 65 %; Platelet Count 178 k/uL (150-450); RBC 4.26 m/uL (3.80-5.40); RDW 11.8 % (11.5-15.5); WBC 7.2 k/uL (3.8-10.6)
[2018-03-17 06:24] LABS: Albumin 3.3 g/dL (3.5-5.0); Calcium 8.7 mg/dL (8.4-10.2); Magnesium 1.9 mg/dL (1.6-2.3); Potassium 3.8 mmol/L (3.5-5.1); Total Bilirubin 1.5 mg/dL (0.2-1.3); Total Protein 5.8 g/dL (6.3-8.2)
--- NOTE | 2018-03-17 08:18 | US ---
EXAMINATION TYPE: US gallbladder DATE OF EXAM: 03/17/2018 COMPARISON: NONE CLINICAL HISTORY: abd pain. nausea/vomiting EXAM MEASUREMENTS: Liver Length: 14.4 cm Gallbladder Wall: 0.2 cm CBD: 0.3 cm Right Kidney: 10.2 x 5.1 x 5.0 cm Pancreas: Obscured by bowel gas Liver: Partially Obscured by overlying bowel gas Gallbladder: wnl Evidence for sonographic Ribeiro's sign: No CBD: wnl Right Kidney: wnl Suboptimal visualization overall due to large amounts of bowel gas. IMPRESSION: Obscuration of the pancreas by overlying bowel gas. Otherwise unremarkable abdominal ultrasound with no cholelithiasis or sonographic evidence of acute cholecystitis.
[2018-03-17] MEDS: METOPROLOL TARTRATE 12.5 MG TAB PO SCH (08:36)
[2018-03-17 08:45] VITALS: BP 144/67; PULSE 90; TEMP 97.8
[2018-03-17] MEDS: SYMBICORT 160-4.5 MCG INHALER INHALATION SCH (08:50)
[2018-03-17] MEDS ORDERED: ALPRAZolam 0.25 MG TAB PO PRN (08:50)
[2018-03-17] MEDS ORDERED: VENLAFAXINE HCL ER 37.5 MG CAP PO SCH (09:00)
[2018-03-17] MEDS ORDERED: ATORVASTATIN 20 MG TAB PO SCH (09:00)
[2018-03-17] MEDS ORDERED: LISINOPRIL 2.5 MG TAB PO SCH (09:00)
[2018-03-17] MEDS ORDERED: ASPIRIN 81 MG PO SCH (09:00)
[2018-03-17] MEDS ORDERED: MELOXICAM 7.5 MG TAB PO SCH (09:00)
--- NOTE | 2018-03-17 13:28 | P.HPIM ---
History of Present Illness H&P Date: 03/17/18 Chief Complaint: Nausea and vomiting HISTORY AND PHYSICAL AND DISCHARGE SUMMARY: This is a 67-year-old female patient of Dr. Durán with past medical history of COPD, osteoarthritis, depression, hyperlipidemia, paroxysmal atrial fibrillation under the care of Dr. Polo, tobacco use and dependence. Patient presented to [facility] due to nausea and vomiting. Lab work found a troponin of 3.990. Chest x-ray was normal and abdominal x-ray showed no acute abdomen. EKG showed inferior lateral T-wave inversions. Echocardiogram revealed small pericardial effusion. There was concern for acute non-ST elevated myocardial infarction patient was started on heparin, aspirin and Lopressor and cardiology transfer the patient to [facility] as a direct admission and underwent heart catheterization that showed normal cardiac vessels. She subsequently underwent ultrasound of the gallbladder which was negative. Sed rate was 11 and CRP 6.1. TSH was 2.580. Total bilirubin 1.5 and AST 68. Urinalysis was clear negative for infection. There is trace blood. Patient has been started on baby aspirin, lisinopril and Lopressor and continued on atorvastatin. She denies having any chest pain, shortness of breath. Patient complains of significant anxiety for which she is requesting to be discharged as soon as possible. Patient denies having any fever or chills. She denies any diarrhea, abdominal pain. Nausea and vomiting are improved. She denies any increased stressors in her life. She denies any flu symptoms. Patient was cleared for discharge by cardiology. Patient will be discharged home today in stable condition. Discharge Medication List Albuterol Inhaler [Ventolin Hfa Inhaler] 2 puff INHALATION RT-Q6H PRN 07/01/16 [ History] Atorvastatin Calcium 20 mg PO DAILY 07/01/16 [History] Budesonide-Formot 160-4.5 Mcg [Symbicort 160-4.5 Mcg Inhaler] 2 puff INHALATION RT-BID 07/01/16 [History] Meloxicam 15 mg PO DAILY 07/01/16 [History] Nitroglycerin Sl Tabs [Nitrostat] 0.4 mg SUBLINGUAL Q5M PRN #25 tab 07/05/16 [Rx ] QUEtiapine [SEROquel] 25 mg PO HS 03/16/18 [History] Venlafaxine HCl ER [Effexor XR] 37.5 mg PO DAILY 03/16/18 [History] Aspirin 81 mg PO DAILY chew 03/17/18 [Rx] Lisinopril [Zestril] 2.5 mg PO DAILY #30 tab 03/17/18 [Rx] Metoprolol Tartrate [Lopressor] 12.5 mg PO BID #60 tab 03/17/18 [Rx] Review of Systems All systems: negative Constitutional: Denies anorexia, Denies chills, Denies fatigue, Denies fever, Denies poor appetite, Denies weight loss Eyes: denies blurred vision, denies pain Ears, nose, mouth and throat: Denies headache, Denies sore throat, Denies vertigo Cardiovascular: Denies chest pain, Denies decreased exercise tolerance, Denies dyspnea on exertion, Denies edema, Denies leg edema, Denies lightheadedness, Denies shortness of breath, Denies syncope Respiratory: Denies congestion, Denies cough, Denies cough with sputum, Denies excessive sputum, Denies hemoptysis, Denies home oxygen Gastrointestinal: Denies abdominal pain, Denies constipation, Denies diarrhea, Denies loss of appetite, Denies nausea, Denies vomiting Genitourinary: Denies dysuria, Denies hematuria Musculoskeletal: Denies myalgias Integumentary: Denies pruritus, Denies rash Neurological: Denies numbness, Denies weakness Psychiatric: Denies anxiety, Denies depression Endocrine: Denies fatigue, Denies weight change Past Medical History Past Medical History: Atrial Fibrillation, Chest Pain / Angina, COPD, Hyperlipidemia, Osteoarthritis (OA) Additional Past Medical History / Comment(s): Degenerative joint disease, states was told had AFIB in past History of Any Multi-Drug Resistant Organisms: None Reported Past Surgical History: Appendectomy, Hysterectomy, Tonsillectomy Additional Past Surgical History / Comment(s): Clear cath 03/16/2018 Past Anesthesia/Blood Transfusion Reactions: No Reported Reaction Smoking Status: Current some day smoker Additional Past Alcohol Use History / Comment(s): Patient is a smoker one pack per day for 40 years. She denies any marijuana or illicit drug use. She is and is retired [employer]. - Past Family History Father Family Medical History: Diabetes Mellitus Additional Family Medical History / Comment(s): Mother in his 60s from unknown reason. Patient does not have any siblings. Patient has 2 children and a son recently had heart catheterization that showed subclinical blockage. Mother at age 59 from sepsis. Mother Family Medical History: Diabetes Mellitus, Hypertension Medications and Allergies Home Medications Medication Instructions Recorded Confirmed Type Albuterol Inhaler [Ventolin Hfa 2 puff INHALATION RT-Q6H PRN 07/01/16 03/16/18 History Inhaler] Atorvastatin Calcium 20 mg PO DAILY 07/01/16 03/16/18 History Budesonide-Formot 160-4.5 Mcg 2 puff INHALATION RT-BID 07/01/16 03/16/18 History [Symbicort 160-4.5 Mcg Inhaler] Meloxicam 15 mg PO DAILY 07/01/16 03/16/18 History Nitroglycerin Sl Tabs [Nitrostat] 0.4 mg SUBLINGUAL Q5M PRN #25 tab 07/05/1602/23 Rx QUEtiapine [SEROquel] 25 mg PO HS 03/16/18 03/16/18 History Venlafaxine HCl ER [Effexor XR] 37.5 mg PO DAILY 03/16/18 03/16/18 History Aspirin 81 mg PO DAILY chew 03/17/18 Rx Lisinopril [Zestril] 2.5 mg PO DAILY #30 tab 03/17/18 Rx Metoprolol Tartrate [Lopressor] 12.5 mg PO BID #60 tab 03/17/18 Rx Allergies Allergy/AdvReac Type Severity Reaction Status Date / Time codeine Allergy Nausea & Verified 03/16/18 14:41 Vomiting Tetanus Vaccines and Toxoid Allergy Swelling Verified 03/16/18 14:41 [Tetanus Vaccines & Toxoid] Physical Exam Vitals: Vital Signs Temp Pulse Resp BP Pulse Ox 03/17/18 08:39 97.8 F 90 16 144/67 98 03/17/18 04:00 97.6 F 82 16 133/61 96 03/17/18 00:30 98.7 F 80 18 127/76 95 03/16/18 22:58 99.3 F 84 17 132/63 93 L 03/16/18 20:00 100.5 F H 89 18 117/58 94 L 03/16/18 16:30 100.2 F H 96 18 123/62 92 L 03/16/18 16:00 105 H 20 139/70 94 L 03/16/18 15:28 103 H 18 03/16/18 15:25 101.0 F H 103 H 18 138/70 95 03/16/18 14:45 90 18 137/80 94 L 03/16/18 14:30 98 20 143/71 93 L 03/16/18 14:15 99.9 F H 98 18 136/65 93 L 03/16/18 14:02 100.0 F H 95 18 142/72 96 03/16/18 14:00 100.0 F H 95 18 142/73 96 03/16/18 13:40 95 16 140/72 96 Intake and Output 03/16/18 03/17/18 03/17/18 22:59 06:59 14:59 Intake Total 540 Output Total 300 Balance 240 Intake: Intake, IV Titration 300 Amount Sodium Chloride 0.9% 1, 300 000 ml @ 75 mls/hr IV . [id number] [facility] Rx#:[id number] Oral 240 Output: Urine 300 Other: Voiding Method Toilet Toilet Toilet # Voids 1 1 Weight 68.6 kg Gen: This is a 67-year-old female. She is in bed and appears to be comfortable. She does complain of anxiety secondary to being in the hospital. HEENT: Head is atraumatic, normocephalic. Pupils equal, round. Sclerae is anicteric. NECK: Supple. No JVD. No lymphadenopathy. No thyromegaly. LUNGS: Clear to auscultation. No wheezes or rhonchi. No intercostal retractions. HEART: Regular rate and rhythm. No murmur. ABDOMEN: Soft. Bowel sounds are present. No masses. No tenderness. EXTREMITIES: No pedal edema. No calf tenderness. NEUROLOGICAL: Patient is awake, alert and oriented x3. Cranial nerves 2 through 12 are grossly intact. Results CBC & Chem 7: 03/17/18 05:58 03/17/18 05:58 Labs: Abnormal Lab Results - Last 24 Hours (Table) 03/16/18 03/16/18 03/17/18 Range/Units 16:27 22:41 05:58 Sodium 133 L 133 L (137-145) mmol/L Carbon Dioxide 20 L (22-30) mmol/L Total Bilirubin 1.5 H 1.5 H (0.2-1.3) mg/dL AST 62 H 68 H (14-36) U/L Total Protein 5.7 L 5.8 L (6.3-8.2) g/dL Albumin 3.3 L 3.3 L (3.5-5.0) g/dL Urine Blood Trace H (Negative) Urine Bacteria Rare H (None) /hpf Urine Mucus Rare H (None) /hpf Microbiology - Last 24 Hours (Table) 03/16/18 22:41 Urine Culture - Preliminary Urine,Clean Catch Thrombosis Risk Factor Assmnt - DVT/VTE Prophylaxis DVT/VTE Prophylaxis: Pharmacologic Prophylaxis ordered - Choose All That Apply Any of the Below Risk Factors Present?: Yes Each Factor Represents 1 point: Abnormal pulmonary function (COPD), Obesity ( BMI >25) Other Risk Factors: Yes Other congenital or acquired thrombophilia - If yes, enter type in comment: No Thrombosis Risk Factor Assessment Total Risk Factor Score: 2 Thrombosis Risk Factor Assessment Level: Low Risk Assessment and Plan Plan: 1. Elevated troponin secondary to myocarditis is likely from viral infection. Comprehensive viral panel has been ordered. Patient has been started on Lopressor, lisinopril, aspirin. 2. Generalized anxiety disorder. Xanax given. 3. COPD, stable without exacerbation. 4. Osteoarthritis generalized stable. 5. Recurrent depression, stable. 6. Reported history of paroxysmal atrial fibrillation. Patient will be admitted to the hospital for a minimum of 2 night stay. Discharge plan: Return home Impression and plan of care have been directed as dictated by the signing physician. Saida Ramos nurse practitioner acting as scribe for signing physician.
--- NOTE | 2018-03-17 13:35 | P.PN ---
Subjective Progress Note Date: 03/17/18 This is a 67-year-old female who was initially transferred here from [facility]. She has a past medical history significant for COPD , osteoarthritis, depression, hyperlipidemia, paroxysmal atrial fibrillation, nicotine dependence. She presented to [facility] with symptoms of nausea and vomiting. Abnormal troponins were noted, 3.9. Chest x-ray was normal, abdominal x-ray did not reveal any acute abdomen. EKG revealed her lateral T-wave inversion. Echocardiogram with Doppler study was performed which revealed a small pericardial effusion with an ejection fraction of 45-50% with global hypokinesia. There was concern for possible non-Q-wave myocardial infarction, patient was hence transferred here and underwent a cardiac catheterization yesterday by Dr. VC Wheatley which did not reveal any significant obstructive coronary artery disease. This morning her CBC is normal, sodium 138 , potassium 3.8, BUN 11, creatinine 0.9, total bilirubin 1.5, AST 68. TSH is normal at 2.5, C-reactive protein normal, sed rate normal. Ultrasound of the gallbladder revealed obscuration of the pancreas by overlying bowel gas. Otherwise it was unremarkable with no cholelithiasis or evidence of acute cholecystitis. Blood pressure this morning 140/60 heart rate in the 90s, 90% on room air. Objective - Vital Signs Vital signs: Vital Signs Temp 97.8 F 03/17/18 08:39 Pulse 90 03/17/18 08:39 Resp 18 03/17/18 08:39 BP 144/67 03/17/18 08:39 Pulse Ox 98 03/17/18 08:39 Intake & Output 03/16/18 03/17/18 03/17/18 18:59 06:59 18:59 Intake Total 640 Output Total 300 Balance 340 Weight 69.5 kg 68.6 kg Intake: IV 100 Intake, IV Titration 300 Amount Sodium Chloride 0.9% 1, 300 000 ml @ 75 mls/hr IV . [id number] FELIPA Rx#:[id number] Oral 240 Output: Urine 300 Other: Voiding Method Toilet Toilet Toilet # Voids 1 1 2 - Exam PHYSICAL EXAMINATION: GENERAL: 67-year-old female in no acute distress at the time of my examination HEENT: Head is atraumatic, normocephalic. Pupils equal, round. Sclera anicteric. Conjunctiva are clear. Mucous membranes of the mouth are moist. Neck is supple. There is no elevated jugular venous pressure. No carotid bruit is heard. HEART EXAMINATION: Heart S1, S2 normal. No murmur or gallop heard. CHEST EXAMINATION: Lungs are clear to auscultation and precussion. No chest wall tenderness is noted on palpation or with deep breathing. ABDOMEN: Soft, nontender. Bowel sounds are heard. No organomegaly noted. Right groin soft, no evidence of any hematoma. EXTREMITIES: 2+ peripheral pulses with no evidence of peripheral edema and no calf tenderness noted. NEUROLOGIC patient is awake, alert and oriented X3. . - Labs CBC & Chem 7: 03/17/18 05:58 03/17/18 05:58 Labs: Abnormal Lab Results - Last 24 Hours (Table) 03/16/18 03/16/18 03/17/18 Range/Units 16:27 22:41 05:58 Sodium 133 L 133 L (137-145) mmol/L Carbon Dioxide 20 L (22-30) mmol/L Total Bilirubin 1.5 H 1.5 H (0.2-1.3) mg/dL AST 62 H 68 H (14-36) U/L Total Protein 5.7 L 5.8 L (6.3-8.2) g/dL Albumin 3.3 L 3.3 L (3.5-5.0) g/dL Urine Blood Trace H (Negative) Urine Bacteria Rare H (None) /hpf Urine Mucus Rare H (None) /hpf Microbiology - Last 24 Hours (Table) 03/16/18 22:41 Urine Culture - Preliminary Urine,Clean Catch Assessment and Plan Plan: Assessment and plan #1Elevated troponin secondary to myocarditis is likely from viral infection. Comprehensive viral panel has been ordered. Patient has been started on Lopressor, lisinopril, aspirin. Status post cardiac catheterization which revealed normal coronary arteries 2. Generalized anxiety disorder. Xanax given. 3. COPD, stable without exacerbation. 4. Osteoarthritis generalized stable. 5. Recurrent depression, stable. 6. Nicotine dependence 7. Febrile illness Plan From cardiology's perspective, patient may be able to be discharged home once cleared by primary. Follow-up appointment in the office with Dr. Polo post discharge. Continue patient on current medications. DNP note has been reviewed, I agree with a documented findings and plan of care. Patient was seen and examined.
== END 2018-03-17 11:03 | disposition home or self-care (01) | DRG 287 ==
LOC: 6SEL 12:43
PROVIDERS: ADMIT Internal Medicine Geriatric Medicine; ATTEND Internal Medicine Geriatric Medicine
PROC: B2111ZZ Fluoroscopy of Multiple Coronary Arteries using Low Osmolar Contrast (ICD-10-PCS; 2018-03-16)
PROC: B2151ZZ Fluoroscopy of Left Heart using Low Osmolar Contrast (ICD-10-PCS; 2018-03-16)
PROC: 4A023N7 Measurement of Cardiac Sampling and Pressure, Left Heart, Percutaneous Approach (ICD-10-PCS; principal; 2018-03-16 12:35)
DX: I40.0 Infective myocarditis (principal); F33.9 Major depressive disorder, recurrent, unspecified; I31.3 Pericardial effusion (noninflammatory); B34.9 Viral infection, unspecified; E78.5 Hyperlipidemia, unspecified; F41.1 Generalized anxiety disorder; I48.0 Paroxysmal atrial fibrillation; J44.9 Chronic obstructive pulmonary disease, unspecified; M19.90 Unspecified osteoarthritis, unspecified site; F17.210 Nicotine dependence, cigarettes, uncomplicated; R77.9 Abnormality of plasma protein, unspecified; Z79.51 Long term (current) use of inhaled steroids; Z79.82 Long term (current) use of aspirin; Z79.899 Other long term (current) drug therapy; Z90.710 Acquired absence of both cervix and uterus; Z90.49 Acquired absence of other specified parts of digestive tract; Z88.5 Allergy status to narcotic agent; Z88.7 Allergy status to serum and vaccine; Z83.3 Family history of diabetes mellitus; Z82.49 Family history of ischemic heart disease and other diseases of the circulatory system
CPT/HCPCS: 71046; 76705; 80053; 81001; 82150; 83690; 83735; 84443; 85025; 85652; 86140; 87040; 87086; 87252; 87498; 87502; 87529; 87634; 87798; 93458; 94640

== ENCOUNTER → 2018-05-17 | Outpatient (CLI) | payer MEDICARE, OTHER ==
--- NOTE | 2018-05-17 16:55 | BD ---
EXAMINATION TYPE: Axial Bone Density DATE OF EXAM: 05/17/2018 COMPARISON: 2017 CLINICAL HISTORY: post menopausal Height: 5'3 Weight: 141 FRAX RISK QUESTIONS: Glucocorticoids (More than 3mos): y (Ex: prednisone, prednisolone, methylprednisolone, dexamethasone, and hydrocortisone). Secondary Osteoporosis: Current Tobacco Use: y RISK FACTORS HISTORY OF: Postmenopausal woman: y MEDICATIONS: Additional Medications: COPD, pain, heart Additional History: EXAM MEASUREMENTS: Bone mineral densitometry was performed using the [employer] System. Bone mineral density as measured about the Lumbar spine is: ----- L1-L4(G/cm2): 1.429 T Score Values are as follows: ----- L2: 1.3 ----- L3: 2.4 ----- L4: 3.0 ----- L1-L4:2.1 Bone mineral density has: Decreased -3.2% since study of: 05/14/2017 Bone mineral density about the R hip (g/cm2): 0.818 Bone mineral density about the L hip (g/cm2): 0.760 T Score values are as follows: -----R Neck: -2.0 -----L Neck: -1.6 -----R Total: -1.5 -----L Total: -1.8 Bone mineral density has: Increased 4.7% since study of: 05/14/2017 IMPRESSION: Osteopenia (T Score between -2.5 and -1). There is slightly increased risk of fracture and the patient may be considered for treatment. Re-Screen 2-5 years. NOTE: T-SCORE=SD OF THE YOUNG ADULT MEAN.
--- NOTE | 2018-05-20 09:21 | MM ---
Reason for exam: screening (asymptomatic). Last mammogram was performed 1 year ago. History: Patient is postmenopausal. Family history of breast cancer in paternal aunt. Physical Findings: A clinical breast exam by your physician is recommended on an annual basis and results should be correlated with mammographic findings. MG 3D Screening Mammo W/Cad Bilateral CC and MLO view(s) were taken. Prior study comparison: May 14, 2017, bilateral MG 3d screening mammo w/cad. December 02, 2016, right breast MG 3d diag mammo w/cad RT. The breast tissue is heterogeneously dense. This may lower the sensitivity of mammography. There are benign appearing round dystrophic calcifications bilaterally. There is no discrete abnormality. ASSESSMENT: Benign, BI-RAD 2 RECOMMENDATION: Routine screening mammogram of both breasts in 1 year.
== END | disposition home or self-care (01) ==
LOC: RADMAMWWP 09:12
PROVIDERS: ATTEND Family Medicine
DX: Z12.31 Encounter for screening mammogram for malignant neoplasm of breast (principal); M85.80 Other specified disorders of bone density and structure, unspecified site; Z78.0 Asymptomatic menopausal state
CPT/HCPCS: 77063; 77067; 77080

== ENCOUNTER 2020-07-02 08:20 | Day surgery (SDC) | payer MEDICARE, OTHER ==
[2020-06-27 15:42] VITALS: BMI 26.2
[~2020-07-02 08:20] MED LIST changes: -LIDOCAINE 1% 20 ML VIAL (10MG/ML) FOR IV START INTRADERMA PRN; -MIDAZOLAM 2 MG/2 ML VIAL IV PRN
[2020-07-02 08:38] VITALS: TEMP 98
[2020-07-02] MEDS ORDERED: LIDOCAINE 1% (10MG/ML) FOR IV START INTRADERMA ONE (08:38)
[2020-07-02] MEDS ORDERED: LACTATED RINGERS 1,000 ML IV ONE (08:38)
[2020-07-02] MEDS ORDERED: PROPOFOL 10 MG/ML 20 ML VIAL IV ONE (09:48)
[2020-07-02 10:16] VITALS: RESP 16
--- NOTE | 2020-07-02 10:18 | P.PCN ---
Date of Procedure: 07/02/20 Description of Procedure: BRIEF HISTORY: Patient is a 69-year-old female presenting for outpatient colonoscopy for evaluation of other fecal abnormalities. The patient had outpatient testing for blood was positive stool for occult blood. No overt signs or symptoms of hematochezia, melena, or other GI bleeding. She does report occasional left lower quadrant abdominal pain. PROCEDURE PERFORMED: Colonoscopy with polypectomy. PREOPERATIVE DIAGNOSIS: Other fecal abnormalities, stool positive for occult blood, last colonoscopy 2017 and normal at that time. ESTIMATED BLOOD LOSS: Minimal. IV sedation per Anesthesia. PROCEDURE: After informed consent was obtained, the patient, was brought into the endoscopy unit. IV sedation was administered by Anesthesia under continuous monitoring. Digital rectal examination was normal. Initially the Olympus CF-190 flexible video colonoscope was then inserted in the rectum, gradually advanced into the cecum without any difficulty. Careful examination was performed as the scope was gradually being withdrawn. Ileocecal valve and the appendiceal orifice were visualized and appeared normal. Prep was fair with large amounts of semisolid stool throughout the colon. Mucosa of the cecum, ascending colon, transverse colon, descending colon, sigmoid colon, and rectum appeared normal, except for a few scattered diverticula in the sigmoid colon. Diminutive 1 mm sigmoid polyp removed with cold forcep polypectomy, suspicious for hyperplastic polyp. Retroflexion was performed in the rectum and no lesions were seen. The patient tolerated the procedure well. IMPRESSION: Diminutive sigmoid colon polyp suspected hyperplastic polyp removed with cold forceps. Mild sigmoid diverticulosis. Fair prep. RECOMMENDATIONS: Findings of this examination were discussed with the patient. Okay to resume diet. Okay to resume medications. Await pathology from polypectomy. Okay to resume screening at previous interval, with scheduled screening in 2027, pending pathology from polypectomy with suspected hyperplastic polyp, or sooner if any signs or symptoms which warrant further evaluation.
[2020-07-02 10:37] VITALS: BP 136/66; PULSE 64
== END 2020-07-02 11:07 | disposition home or self-care (01) ==
LOC: ORWHC2ENDO 08:20
PROVIDERS: ATTEND Internal Medicine
DX: K63.5 Polyp of colon (principal); K57.30 Diverticulosis of large intestine without perforation or abscess without bleeding; I48.0 Paroxysmal atrial fibrillation; J44.9 Chronic obstructive pulmonary disease, unspecified; F17.210 Nicotine dependence, cigarettes, uncomplicated; Z79.899 Other long term (current) drug therapy; Z79.51 Long term (current) use of inhaled steroids; Z88.7 Allergy status to serum and vaccine; Z88.5 Allergy status to narcotic agent; Z98.890 Other specified postprocedural states; Z98.41 Cataract extraction status, right eye; Z98.42 Cataract extraction status, left eye; Z90.710 Acquired absence of both cervix and uterus
CPT/HCPCS: 88305; 45380; J2704

== ENCOUNTER → 2021-01-16 | Outpatient (CLI) | payer MEDICARE, OTHER ==
--- NOTE | 2021-01-16 10:53 | MR ---
EXAMINATION TYPE: MR lumbar spine wo con DATE OF EXAM: 01/16/2021 COMPARISON: NONE HISTORY: chronic neck pain/ low back pain TECHNIQUE: T1 and T2 axial and sagittal images of the lumbar spine are submitted. FINDINGS: There is no abnormal signal seen within the visualized spinal cord or paraspinal soft tissu es. 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 Multilevel moderate to severe degenerative disc disease. At L1-2 there is severe degenerative disc disease with broad-based disc protrusion. Mild left neural foraminal moderate right foraminal encroachment with mild central stenosis. Hypertrophic change of th e facets noted. At L2-3 there is severe degenerative disc disease with broad-based disc bulging. Hypertrophic change of the facets and ligamentum flavum contribute to mild central stenosis and mild bilateral foraminal encroachment. At L3-4 there is severe degenerative disc disease with advanced facet arthropathy greater on the righ t. Broad-based disc bulging contribute to mild canal stenosis and bilateral foraminal encroachment. At L4-5 there is severe degenerative disc disease with advanced facet arthropathy and ligamentum flav um hypertrophy. Broad-based central disc bulging contribute to mild central stenosis and mild bilater al foraminal encroachment. At L5-S1 there is only a broad-based central disc bulging with facet arthropathy. Mild bilateral fora margot encroachment. No Canal stenosis. IMPRESSION: 1. Multilevel severe degenerative disc disease with disc bulging result in multilevel mild canal sten osis and foraminal encroachment. 2. Multilevel facet arthropathy. EXAMINATION TYPE: MR cspine/lspine wo con DATE OF EXAM: 01/16/2021 COMPARISON: NONE HISTORY: chronic neck pain/ low back pain TECHNIQUE: T1 sagittal and coronal, T2 sagittal, and gradient echo axial views of the cervical spine are submitted. FINDINGS: The cranial cervical junction is preserved. There is no abnormal signal seen within the sp inal cord or paraspinal soft tissues. At C2-3 there is disc desiccation with facet arthropathy and uncovertebral joint hypertrophy. Small c entral disc protrusion abutting the anterior margin the spinal cord.. At C3-4 there is moderate degenerative disc disease with uncovertebral joint hypertrophy and broad-ba sed disc protrusion capped by spur. Facet arthropathy with severe bilateral foraminal encroachment. T here is anterior cord compression with severe canal stenosis At C4-5 there is moderate degenerative disc disease with uncovertebral joint hypertrophy and broad-ba sed disc protrusion capped by spur. Facet arthropathy with severe bilateral foraminal encroachment. T here is anterior cord compression with severe canal stenosis At C5-6 there is broad-based central disc herniation with facet arthropathy and uncovertebral joint h ypertrophy. Moderate canal stenosis and mild mass effect upon the spinal cord. There is bilateral mod erate to severe foraminal encroachment. At C6-7 there is broad-based central left paracentral disc herniation. Abuts the anterior margin the spinal cord with no displacement. Uncovertebral joint hypertrophy contributes to mild bilateral dave inal encroachment. At C7-T1 there is degenerative disc disease with no disc herniation or canal stenosis. No foraminal e ncroachment. Incidental note is made of a subcentimeter left thyroid nodule. IMPRESSION: 1. Severe multilevel degenerative disc disease with multilevel disc protrusion or herniations as dis cussed above resulting in multilevel significant canal stenosis and foraminal encroachment. See above . 2. Left paracentral disc herniation C6/C7.
== END | disposition home or self-care (01) ==
LOC: RADMRIMAIN 07:19
PROVIDERS: ATTEND Orthopaedic Surgery
DX: M48.02 Spinal stenosis, cervical region (principal); M50.33 Other cervical disc degeneration, cervicothoracic region; M50.223 Other cervical disc displacement at C6-C7 level; M99.71 Connective tissue and disc stenosis of intervertebral foramina of cervical region; M48.061 Spinal stenosis, lumbar region without neurogenic claudication; M51.36 Other intervertebral disc degeneration, lumbar region; M51.26 Other intervertebral disc displacement, lumbar region; M47.816 Spondylosis without myelopathy or radiculopathy, lumbar region; M99.73 Connective tissue and disc stenosis of intervertebral foramina of lumbar region
CPT/HCPCS: 72141; 72148

== ENCOUNTER → 2021-02-08 | Outpatient (CLI) | payer MEDICARE, OTHER ==
--- NOTE | 2021-02-08 16:43 | EEG ---
ELECTROENCEPHALOGRAM REPORT DATE OF SERVICE: 02/08/2021 CLINICAL HISTORY: This is a 70-year-old woman with reported new onset seizure a couple weeks ago. This video EEG is obtained to evaluate for seizure epileptiform activity. RELEVANT MEDICATION: The patient is not on any antiepileptic drugs that is reported on the patient's chart. EEG TYPE: A routine 21 channel EEG is performed with video using the 10/20 electrode placement system. DESCRIPTION: Wakefulness is only obtained. During wakefulness, there is a posterior dominant rhythm, of [id number] voltage that is well modulated, well sustained of 9-10 hertz. There is no physiological sleep architecture seen. There is no focal slowing. Interictal and ictal is none. ACTIVATION PROCEDURE: Photic stimulation did evoke a posterior driving response at multiple flash frequencies. There is no abnormality during the photic stimulation. Hyperventilation is not performed. CLINICAL INTERPRETATION: This is a normal routine EEG. There are no focal slowing, epileptiform discharges or seizure on the EEG. Clinical correlation is recommended. MMCARLOS / SRUTHIN: [id number] /
== END ==
LOC: NEUROMAIN 07:26
PROVIDERS: ATTEND Family Medicine
DX: G40.409 Other generalized epilepsy and epileptic syndromes, not intractable, without status epilepticus (principal); F17.200 Nicotine dependence, unspecified, uncomplicated; Z88.5 Allergy status to narcotic agent; Z88.7 Allergy status to serum and vaccine
CPT/HCPCS: 95816

== ENCOUNTER → 2021-02-15 | Outpatient (CLI) | payer MEDICARE, OTHER ==
--- NOTE | 2021-02-15 22:26 | MR ---
EXAMINATION TYPE: MR brain wo con DATE OF EXAM: 02/15/2021 COMPARISON: NONE HISTORY: Seizures. TECHNIQUE: Multiplanar, multisequence imaging of the brain and brainstem is performed without IV cont rast. IV contrast could not be given because of inability to get IV access despite multiple attempts. FINDINGS: Diffusion weighted images demonstrate no evidence of a recent infarct or other diffusion abnormality. The ventricular system and cisternal spaces are normal in size and appearance. The brain volume is a ge appropriate. Scattered areas of T2 hyperintensity are seen throughout the white matter bilaterally with more confluent appearance at the periventricular regions. T2 coronal weighted images show hippo campal gyri appear symmetric and thought within normal limits. Midline structures demonstrate normal morphology. The craniocervical junction appears within normal limits. Normal vascular flow voids are present. Crah-hj-[id number] mucosal thickening throughout the et hmoid sinuses bilaterally. Nasal septum is deviated to right of midline. Globes are intact bilaterall y. 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 Mild to moderate bilateral chronic ethmoid s inusitis.
== END | disposition home or self-care (01) ==
LOC: RADMRIMAIN 14:35
PROVIDERS: ATTEND Family Medicine
DX: I67.82 Cerebral ischemia (principal)
CPT/HCPCS: 70551

== ENCOUNTER → 2023-01-09 | Outpatient (CLI) | payer MEDICARE, OTHER ==
[2023-01-09 13:05] VITALS: BP 114/76; PULSE 93; RESP 13; TEMP 97.5
--- NOTE | 2023-01-09 13:45 | P.GSHP ---
History of Present Illness H&P Date: 01/09/23 Chief Complaint: lump right breast Ashley is a 72 year old white female seen in consultation for Dr. Allen regarding a right breast mass. She had a bilateral mammogram on 07-08-22 which was BIRAD 2. She than had a right breast ultrasound on 11-06-22 which was BIRAD 1. She states the right breast became more dominant with greatest area noted in the lateral aspect of the breast. She states now her left breast also feels like it is becoming more full. She does have pain with pressure in the lateral aspect of the right breast. She is not complaining of any nipple discharge or skin changes. She is not complaining of any recent trauma or infection in the breast. She has never had any surgery on her breast. She has not had any recent changes in medications. She has not changed any caffeine intake, or nicotine use. She does vape daily. caffeine: 10 cups coffee/day; 2 bottles 20oz diet pepsi/day nicotine: vape daily, used to smoke stopped 1 year ago; used to smoke 1 PPD chocolate: occasional BCP: 25 years hormones: none Note Dr. Durán reviewed 11-11-22 Family History: negative for cancer Hormonal History: menarche: 15 , breast fed: no, age at first : 21 menopause: in her 40's Surgical history: hysterectomy, left ovaries tonsil stent in head; 2 aneurysms Bilateral cataract removal Medical History: anxiety/depression high cholesterol ? atrial fibrillation Social History: nicotine: as above alcohol: none drugs: none - Constitutional Constitutional: Denies chills, Denies fever - EENT Eyes: denies blurred vision, denies pain Ears: deny: decreased hearing, tinnitus Ears, nose, mouth and throat: Reports headache - Breasts Breasts: bilateral: as per HPI - Cardiovascular Cardiovascular: Denies chest pain, Denies shortness of breath - Respiratory Comment: COPD Respiratory: Reports cough - Gastrointestinal Gastrointestinal: Denies abdominal pain, Denies diarrhea, Denies nausea, Denies vomiting - Genitourinary (Female) Genitourinary: Denies dysuria, Denies hematuria - Menstruation Menstruation: Reports postmenopausal - Musculoskeletal Comment: back pain Musculoskeletal: Denies myalgias - Integumentary Integumentary: Denies pruritus, Denies rash - Neurological Neurological: Denies numbness, Denies weakness - Psychiatric Psychiatric: Reports anxiety, Reports depression - Endocrine Endocrine: Denies fatigue, Denies weight change - Hematologic/Lymphatic Comment: baby aspirin stints in brain - Allergic/Immunologic Allergic/Immunologic: Reports as per HPI Past Medical History Past Medical History: Atrial Fibrillation, Chest Pain / Angina, COPD, Hyperlipidemia, Memory Impairment, Musculoskeletal Disorder, Osteoarthritis (OA) Additional Past Medical History / Comment(s): Degenerative Joint Disease, "terrible memory", hx A-Fib, no current issues. History of Any Multi-Drug Resistant Organisms: None Reported Past Surgical History: Appendectomy, Heart Catheterization, Hysterectomy, Tonsillectomy Additional Past Surgical History / Comment(s): Heart catheterization X2, adhesions removed, bilateral cataracts removed with lens implants. Past Anesthesia/Blood Transfusion Reactions: No Reported Reaction Past Psychological History: Anxiety, Depression Additional Psychological History / Comment(s): . Smoking Status: Current every day smoker Past Alcohol Use History: None Reported Additional Past Alcohol Use History / Comment(s): Patient is a smoker one pack per day for 40 years, currently down to 1 pack every 2 -2 1/2 days. Past Drug Use History: None Reported - Past Family History Father Family Medical History: Diabetes Mellitus Additional Family Medical History / Comment(s): Mother in his 60s from unknown reason. Patient does not have any siblings. Patient has 2 children and a son recently had heart catheterization that showed subclinical blockage. Mother at age 59 from sepsis. Mother Family Medical History: Diabetes Mellitus, Hypertension Medications and Allergies Home Medications Medication Instructions Recorded Confirmed Type Albuterol Inhaler [Ventolin Hfa 2 puff INHALATION RT-Q6H 07/01/16 01/09/23 History Inhaler] Atorvastatin Calcium 20 mg PO DAILY 07/01/16 01/09/23 History Budesonide-Formot 160-4.5 Mcg 2 puff INHALATION RT-BID 07/01/16 01/09/23 History [Symbicort 160-4.5 Mcg Inhaler] Nitroglycerin Sl Tabs [Nitrostat] 0.4 mg SUBLINGUAL Q5M PRN #25 tab 07/05/16 01/09/23 Rx QUEtiapine [SEROquel] 25 mg PO HS 03/16/18 01/09/23 History Venlafaxine HCl ER [Effexor XR] 37.5 mg PO DAILY 03/16/18 01/09/23 History Aspirin 81 mg PO DAILY 01/09/23 01/09/23 History Allergies Allergy/AdvReac Type Severity Reaction Status Date / Time codeine Allergy Nausea & Verified 01/09/23 12:58 Vomiting Tetanus Vaccines and Toxoid Allergy Swelling Verified 01/09/23 12:58 [Tetanus Vaccines & Toxoid] Surgical - Exam Vital Signs Temp Pulse Resp BP Pulse Ox 97.5 F L 93 13 114/76 96 01/09/23 13:00 01/09/23 13:00 01/09/23 13:00 01/09/23 13:00 01/09/23 13:00 - General no distress - Eyes normal ocular movement - ENT no hearing loss - Neck trachea midline - Respiratory normal respiratory effort - Cardiovascular Rhythm: regular Heart Sounds: normal: S1, S2 - Abdomen Abdomen: soft, non tender, no guarding, no rigid, no rebound - Integumentary normal turgor - Neurologic no disoriented, no combative - Musculoskeletal normal gait, normal posture - Psychiatric oriented to time, oriented to person, oriented to place, speech is normal, memory intact Breast Exam: BRA: 38D inspection: With the patient raises her arm there is some tethering of the skin in the lateral aspect of the right breast, bilateral grade 2 ptosis Palpation: Right breast: Multi-positional exam increased mass/density in the lateral aspect of the breast with some tethering of the skin Right axilla: No adenopathy of concern Left breast: Multi-positional exam no dominant masses or nodules of concern Left axilla: No adenopathy of concern Results Mammogram and RESULTS REVIEWED Assessment and Plan Assessment: Impression: anxiety/depression high cholesterol ? atrial fibrillation Following this right breast lateral aspect with some tethering of the skin Plan: Repeat right breast mammogram and ultrasound Follow-up after repeat studies Cc: Dr. Durán
== END ==
LOC: WWCWWP 12:50
PROVIDERS: ATTEND Surgery
DX: F41.9 Anxiety disorder, unspecified (principal); F32.A Depression, unspecified; E78.00 Pure hypercholesterolemia, unspecified; M19.90 Unspecified osteoarthritis, unspecified site; I48.91 Unspecified atrial fibrillation; J44.9 Chronic obstructive pulmonary disease, unspecified; F17.210 Nicotine dependence, cigarettes, uncomplicated; Z79.51 Long term (current) use of inhaled steroids; Z88.5 Allergy status to narcotic agent; Z88.7 Allergy status to serum and vaccine

== ENCOUNTER → 2023-01-09 | Outpatient (CLI) | payer MEDICARE, OTHER ==
--- NOTE | 2023-01-09 14:50 | MM ---
Reason for Exam: Additional evaluation requested from abnormal screening. Last mammogram was performed 1 year(s) and 7 month(s) ago. Patient History: Menarche at age 14. First Full-Term at age 21. Hysterectomy at age 27. Postmenopausal. Paternal aunt had breast cancer. Risk Values: Zulma 5 year model risk: 1.2%. NCI Lifetime model risk: 3.7%. Prior Study Comparison: 12/02/2016 Right Diagnostic Mammogram, [facility]. 05/14/2017 Bilateral Screening Mammogram, [facility]. 05/17/2018 Bilateral Screening Mammogram, [facility]. Tissue Density: Right: The breast tissue is heterogeneously dense. This may lower the sensitivity of mammography. Findings: Analyzed By CAD. There is a region of possible architectural distortion at site of patient's reported abnormality in the upper outer right breast anterior to middle depth. Additional benign-appearing calcifications are identified in this region. Overall Assessment: Incomplete: need additional imaging evaluation, BI-RAD 0 Management: Diagnostic Breast Ultrasound of the right breast. A clinical breast exam by your physician is recommended on an annual basis and results should be correlated with mammographic findings. This exam should not preclude additional follow-up of suspicious palpable abnormalities. Results were given to the patient verbally at the time of exam. Note on Zulma scores and lifetime risk: 1. A Uzlma score greater than 3% is considered moderate risk. If this is the case, consider specialist referral to assess eligibility for a risk reducing agent. If overall lifetime risk for the development of breast cancer is 20% or higher, the patient may qualify for future screening with alternating mammogram and breast MRI. Electronically signed and approved by: Bryant Nelson D.O.
--- NOTE | 2023-01-09 15:19 | USB ---
Reason for Exam: Clinical finding. Patient History: Menarche at age 14. First Full-Term at age 21. Hysterectomy at age 27. Postmenopausal. Paternal aunt had breast cancer. Risk Values: Zulma 5 year model risk: 1.2%. NCI Lifetime model risk: 3.7%. Prior Study Comparison: 12/02/2016 Right Diagnostic Mammogram, [facility]. 05/14/2017 Bilateral Screening Mammogram, [facility]. 05/17/2018 Bilateral Screening Mammogram, [facility]. Findings: The whole breast of the right breast, the axilla of the right breast and the retroareolar of the right breast were scanned. Complete ultrasound of the right breast was performed with additional evaluation of the nipple and axillary tail. Irregular heterogenous ill-defined mass identified within the right breast abnormality at 10:00 2 cm from nipple measuring grossly 3.3 x 1.6 x 3.1 cm. Along its edge at 10:00 4 cm from the nipple there is hypoechoic irregular spiculated mass that is taller than wide with posterior acoustic shadowing and internal vascularity measuring 0.5 x 0.8 x 1.7 cm. There is some irregularity along the other edge of the mass with hypoechoic appearance and shadowing. No axillary lymphadenopathy identified. Overall Assessment: Suspicious, BI-RAD 4 Management: Ultrasound Core Biopsy of the right breast. A clinical breast exam by your physician is recommended on an annual basis and results should be correlated with mammographic findings. This exam should not preclude additional follow-up of suspicious palpable abnormalities. Results were given to the patient verbally at the time of exam. Electronically signed and approved by: Bryant Nelson D.O.
== END | disposition home or self-care (01) ==
LOC: RADMAMWWP 14:00
PROVIDERS: ATTEND Surgery
DX: R92.1 Mammographic calcification found on diagnostic imaging of breast (principal); R68.89 Other general symptoms and signs; Z78.0 Asymptomatic menopausal state; Z80.3 Family history of malignant neoplasm of breast
CPT/HCPCS: 77065; 76641; G0279; 77061

== ENCOUNTER → 2023-01-20 | Day surgery (SDC) | payer MEDICARE, OTHER ==
--- NOTE | 2023-01-28 09:57 | MM ---
Reason for Exam: Post Procedure Mammogram. Last mammogram was performed 1 year(s) and 7 month(s) ago. Patient History: Menarche at age 14. First Full-Term at age 21. Hysterectomy at age 27. Postmenopausal. Paternal aunt had breast cancer. Risk Values: Zulma 5 year model risk: 1.2%. NCI Lifetime model risk: 3.7%. Prior Study Comparison: 05/22/2020 Bilateral Screening Mammogram, Unknown. 07/04/2021 Bilateral Screening Mammogram, [facility]. 01/09/2023 Right MG 3D diag mammo w/cad RT, [facility]. Tissue Density: Right: The breast tissue is heterogeneously dense. This may lower the sensitivity of mammography. Pathology Description: Location: 10 o'clock. Marker Left Behind. Needle Type: Mammotome Cores: 6 Gauge: 13 The procedure of ultrasound guided core biopsy was explained to the patient. Benefits, alternatives, and risks were discussed. An informed consent was then obtained. The patient was placed in supine positioning for imaging and for the procedure. The overlying skin was prepped and draped in usual sterile fashion. Lidocaine was used as anesthetic into the skin and subcutaneous tissue up to area of concern in the right breast. Under ultrasound guidance, a 12-gauge vacuum assisted biopsy gun device was used to obtain 6 core samples. Following this, a biopsy clip was left in lesion. The patient tolerated the procedure well without any immediate complication. The patient was kept in the radiology department for short stay after the procedure and then discharged home in stable condition. Postprocedure mammogram: The patient was transferred to mammography for physician ordered post procedure mammogram for clip placement verification. Postprocedure mammogram demonstrates biopsy clip to be in appropriate position. Impression: Successful, uncomplicated ultrasound guided core biopsy of area of concern in the right breast, full pathology results to follow. Pathology Results: Result: Malignant, Invasive lobular carcinoma. RIGHT BREAST, TEN O'CLOCK 3CFN, ULTRASOUND GUIDED NEEDLE CORE BIOPSY: Invasive lobular carcinoma. See Surgical Pathology Cancer Case Summary and Comment. Overall Assessment: Malignant Assessment: MG diagnostic mammo RT wo CAD - Right: Known biopsy proven malignancy, BI-RAD 6. Management: Surgical Consultation of the right breast. Electronically signed and approved by: Bryant Nelson D.O.
== END ==
LOC: RADUSWWP 12:35
PROVIDERS: ATTEND Surgery
DX: C50.411 Malignant neoplasm of upper-outer quadrant of right female breast (principal)
CPT/HCPCS: 88305; 88342; 88341; 77065; 19083; A4648

== ENCOUNTER → 2023-02-20 | Outpatient (CLI) | payer MEDICARE, OTHER ==
--- NOTE | 2023-02-23 12:08 | PE ---
EXAMINATION TYPE: PET CT fusion skull to thigh DATE OF EXAM: 02/20/2023 COMPARISON: None Prior PET/CT: None HISTORY: Breast cancer TECHNIQUE: Following the intravenous administration of 13.33 mCi of F-18 FDG, whole body images are performed from the skull base to the midthigh. Images are reviewed on the computer in the coronal, a xial, and sagittal planes. Reconstructed rotating images are created on independent workstation and reviewed on the computer. A localization and attenuation correction CT is performed in conjunction with the PET scan. DLP: 439 mGycm SCAN: Initial Blood glucose: 97 mg/dL Average Mediastinum SUV: 2.04 Average Liver SUV: 2.86 FINDINGS: NECK: Uptake within the vocal cords likely related to phonation. There is some uptake within the rig ht paraspinal muscle from activity. THORAX: There is uptake within the right breast compatible with the patient's right breast cancer. Th is could be post surgical in nature. No suspicious uptake within axillary or mediastinal lymph nodes is evident. ABDOMEN: No suspicious uptake PELVIS: No suspicious uptake OSSEOUS STRUCTURES: No suspicious uptake LOCALIZATION CT: There is a small hiatal hernia present. COMPARISON: None IMPRESSION: 1. No suspicious uptake to suggest metastatic breast cancer.
== END | disposition home or self-care (01) ==
LOC: RADPETMAIN 06:23
PROVIDERS: ATTEND Surgery
DX: C50.411 Malignant neoplasm of upper-outer quadrant of right female breast (principal)
CPT/HCPCS: 78815; A9552

== ENCOUNTER → 2023-04-01 | Outpatient (CLI) | payer MEDICARE ==
[2023-04-01 12:26] VITALS: BP 111/68; PULSE 82; RESP 17; TEMP 98.1
--- NOTE | 2023-04-01 12:29 | P.PN ---
Subjective Progress Note Date: 04/01/23 Subjective Progress Note Date: 04-01-23 Ashley is a 72 year old white female seen in consultation for Dr. Allen regarding a right breast mass. She had a bilateral mammogram on 07-08-22 which was BIRAD 2. She than had a right breast ultrasound on 11-06-22 which was BIRAD 1. She states the right breast became more dominant with greatest area noted in the lateral aspect of the breast. She states now her left breast also feels like it is becoming more full. She does have pain with pressure in the lateral aspect of the right breast. She is not complaining of any nipple discharge or skin changes. She is not complaining of any recent trauma or infection in the breast. She has never had any surgery on her breast. She has not had any recent changes in medications. She has not changed any caffeine intake, or nicotine use. She does vape daily. The patient on underwent ultrasound guided core biopsy of the right breast. Pathology revealed an invasive lobular carcinoma, G2, ER positive, [place] positive, HER-2 negative. The size of the lesion could not be fully evaluated secondary to the obscure findings on ultrasound. This was reviewed with Dr. Noland and an MRI was ordered. The patient had a PET scan which was negative, and she underwent a MRI of both breast. The MRI revealed 1 low-lying right axillary node borderline enlarged to 10 mm in the short axis, and disease which was approximately 5.8 x 7.1 cm in the right breast. The left breast did not show any lesions of concern. I have called and discussed this with the patient. At this time the patient would like to undergo a bilateral mastectomy with a right breast needle localization of the lymph node of concern if it can be seen on ultrasound and sentinel node biopsy possible axillary node dissection on the right. The patient's case was presented at tumor board and [id number]. caffeine: 10 cups coffee/day; 2 bottles 20oz diet pepsi/day nicotine: vape daily, used to smoke stopped 1 year ago; used to smoke 1 PPD chocolate: occasional BCP: 25 years hormones: none Note Dr. Durán reviewed 11-11-22 Family History: negative for cancer Hormonal History: menarche: 15 , breast fed: no, age at first : 21 menopause: in her 40's Surgical history: hysterectomy, left ovaries tonsil stent in head; 2 aneurysms Bilateral cataract removal Medical History: anxiety/depression high cholesterol ? atrial fibrillation Social History: nicotine: as above alcohol: none drugs: none - Constitutional Constitutional: Denies chills, Denies fever - EENT Eyes: denies blurred vision, denies pain Ears: deny: decreased hearing, tinnitus Ears, nose, mouth and throat: Reports headache - Breasts Breasts: bilateral: as per HPI - Cardiovascular Cardiovascular: Denies chest pain, Denies shortness of breath - Respiratory Comment: COPD Respiratory: Reports cough - Gastrointestinal Gastrointestinal: Denies abdominal pain, Denies diarrhea, Denies nausea, Denies vomiting - Genitourinary (Female) Genitourinary: Denies dysuria, Denies hematuria - Menstruation Menstruation: Reports postmenopausal - Musculoskeletal Comment: back pain Musculoskeletal: Denies myalgias - Integumentary Integumentary: Denies pruritus, Denies rash - Neurological Neurological: Denies numbness, Denies weakness - Psychiatric Psychiatric: Reports anxiety, Reports depression - Endocrine Endocrine: Denies fatigue, Denies weight change - Hematologic/Lymphatic Comment: baby aspirin stints in brain - Allergic/Immunologic Allergic/Immunologic: Reports as per HPI Past Medical History Past Medical History: Atrial Fibrillation, Chest Pain / Angina, COPD, Hyperlipidemia, Memory Impairment, Musculoskeletal Disorder, Osteoarthritis (OA) Additional Past Medical History / Comment(s): Degenerative Joint Disease, "terrible memory", hx A-Fib, no current issues. History of Any Multi-Drug Resistant Organisms: None Reported Past Surgical History: Appendectomy, Heart Catheterization, Hysterectomy, Tonsillectomy Additional Past Surgical History / Comment(s): Heart catheterization X2, adhesions removed, bilateral cataracts removed with lens implants. Past Anesthesia/Blood Transfusion Reactions: No Reported Reaction Past Psychological History: Anxiety, Depression Additional Psychological History / Comment(s): . Smoking Status: Current every day smoker Past Alcohol Use History: None Reported Additional Past Alcohol Use History / Comment(s): Patient is a smoker one pack per day for 40 years, currently down to 1 pack every 2 -2 1/2 days. Past Drug Use History: None Reported - Past Family History Father Family Medical History: Diabetes Mellitus Additional Family Medical History / Comment(s): Mother in his 60s from unknown reason. Patient does not have any siblings. Patient has 2 children and a son recently had heart catheterization that showed subclinical blockage. Mother at age 59 from sepsis. Mother Family Medical History: Diabetes Mellitus, Hypertension Medications and Allergies Home Medications Medication Instructions Recorded Confirmed Type Albuterol Inhaler [Ventolin Hfa 2 puff INHALATION RT-Q6H 07/01/16 01/09/23 History Inhaler] Atorvastatin Calcium 20 mg PO DAILY 07/01/16 01/09/23 History Budesonide-Formot 160-4.5 Mcg 2 puff INHALATION RT-BID 07/01/16 01/09/23 History [Symbicort 160-4.5 Mcg Inhaler] Nitroglycerin Sl Tabs [Nitrostat] 0.4 mg SUBLINGUAL Q5M PRN #25 tab 07/05/16 01/09/23 Rx QUEtiapine [SEROquel] 25 mg PO HS 03/16/18 01/09/23 History Venlafaxine HCl ER [Effexor XR] 37.5 mg PO DAILY 03/16/18 01/09/23 History Aspirin 81 mg PO DAILY 01/09/23 01/09/23 History Allergies Allergy/AdvReac Type Severity Reaction Status Date / Time codeine Allergy Nausea & Verified 01/09/23 12:58 Vomiting Tetanus Vaccines and Toxoid Allergy Swelling Verified 01/09/23 12:58 [Tetanus Vaccines & Toxoid] Objective - Vital Signs Vital signs: Vital Signs Temp 98.1 F 04/01/23 12:10 Pulse 82 04/01/23 12:10 Resp 17 04/01/23 12:10 BP 111/68 04/01/23 12:10 Pulse Ox 96 04/01/23 12:10 FiO2 Intake & Output 03/31/23 04/01/23 04/01/23 18:59 06:59 18:59 Weight 72.121 kg - Constitutional General appearance: Present: cooperative - EENT Eyes: Present: EOMI ENT: Present: hearing grossly normal - Neck Neck: Present: normal ROM - Respiratory Respiratory: bilateral: CTA - Cardiovascular Heart sounds: normal: S1, S2 - Integumentary Integumentary: Present: normal turgor - Musculoskeletal Musculoskeletal: Present: gait normal - Psychiatric Psychiatric: Present: A&O x's 3, appropriate affect, intact judgment & insight - Additional findings Additional findings: Breast Exam: BRA: 38D inspection: With the patient raises her arm there is some tethering of the skin in the lateral aspect of the right breast, bilateral grade 2 ptosis Palpation: Right breast: Multi-positional exam increased mass/density in the lateral aspect of the breast with some tethering of the skin; mild ecchymosis at biopsy site Right axilla: No adenopathy of concern Left breast: Multi-positional exam no dominant masses or nodules of concern Left axilla: No adenopathy of concern Assessment and Plan Assessment: Impression: anxiety/depression high cholesterol ? atrial fibrillation invasive lobular cancer right breast; PET/CT no mets MRI reviewed presented at tumor board Plan: clearance Dr. Durán Bilateral mastectomy with a right axillary node needle localization via ultrasound to address questionable lymph node seen on MRI, right sentinel node injection, right sentinel node biopsy, removal of right axillary node localized by ultrasound, possible right axillary node dissection I have discussed the results with the patient and her [id number]. They understand that we would like to further evaluate the size of the tumor and that we would like to get an MRI. Additionally secondary to the large size of PET/CT has been suggested. We have discussed reconstruction and she is not interested. He is not interested in seeing a plastic surgeon. The benefits of the procedure were discussed with the patient and her [id number]. Risks include but are not limited to bleeding, infection, reaction to the anesthetic. We discussed the possibility of decreased sensation to the inner arm as well as lymphedema or injury to the thoracodorsal or long thoracic nerve resulting in wing scapula. She understands and wishes to proceed. Additional CC's: Lyn Durán
== END ==
LOC: WWCWWP 11:01
PROVIDERS: ATTEND Surgery
DX: C50.911 Malignant neoplasm of unspecified site of right female breast (principal); F41.9 Anxiety disorder, unspecified; F32.A Depression, unspecified; E78.00 Pure hypercholesterolemia, unspecified; I48.91 Unspecified atrial fibrillation; J44.9 Chronic obstructive pulmonary disease, unspecified; F17.210 Nicotine dependence, cigarettes, uncomplicated; M19.90 Unspecified osteoarthritis, unspecified site; Z17.0 Estrogen receptor positive status [ER+]; Z79.51 Long term (current) use of inhaled steroids; Z88.7 Allergy status to serum and vaccine; Z90.49 Acquired absence of other specified parts of digestive tract; Z88.5 Allergy status to narcotic agent; Z79.82 Long term (current) use of aspirin; Z87.39 Personal history of other diseases of the musculoskeletal system and connective tissue

== ENCOUNTER 2023-04-14 08:28 | Day surgery (SDC) | payer MEDICARE, OTHER ==
[~2023-04-14 08:28] MED LIST changes: +DEXAMETHASONE SOD PHOSPHATE 4 MG/ML 1 ML VIAL IV ONE; +HEPARIN SODIUM,PORCINE/PF 5,000 UNIT/0.5 ML SYRINGE SQ PRN; +HYDROmorphone 0.5 MG/0.5 ML SYRINGE IVP PRN; -LACTATED RINGERS 1,000 ML IV SCH; +LIDOCAINE 1% (10MG/ML) FOR IV START INTRADERMA PRN; +ONDANSETRON 4 MG/2 ML VIAL IVP ONE
[2023-04-14] MEDS: LACTATED RINGERS 1,000 ML IV SCH (09:08)
[2023-04-14 09:30] LABS: Glucose,Whole Blood 106 mg/dL (70-110)
[2023-04-14] MEDS ORDERED: ALPRAZolam 0.25 MG TAB ONE (09:32)
[2023-04-14] MEDS ORDERED: ALPRAZolam 0.25 MG TAB PO ONE (09:34)
[2023-04-14] MEDS ORDERED: LIDOCAINE 1% INJ 10MG/ML (20 ML MDV) SQ ONE (10:25)
--- NOTE | 2023-04-14 10:51 | NM ---
EXAMINATION TYPE: NM sentinel node injection DATE OF EXAM: 04/14/2023 COMPARISON: No direct comparison CLINICAL INDICATION: Female, 72 years old with history of RIGHT BREAST CA; TECHNIQUE AND FINDINGS: The procedure of sentinel lymph node injection was explained to the patient. The benefits, alternatives, and risks were discussed. An informed consent was then obtained. Overlying skin is cleaned with sterile alcohol. Following this, 519 uCi Tc99m Tilmanocept was inject ed in the upper outer aspect of the right nipple intradermally. The patient tolerated the procedure well without any immediate complication. The patient was kept in the radiology department for short stay after the procedure and then taken to surgery for surgical p rocedure what is presumed intraoperative gamma probe will be used for sentinel lymph node detection. IMPRESSION: Right breast radiotracer injection for sentinel node localization as above.
--- NOTE | 2023-04-14 11:13 | P.NAPBC ---
NAPBC Queries - NAPBC Queries Was patient's case review presented at [facility] tumor board? If no, comment.: Yes Was patient's pathology reviewed at [facility]? If no, comment.: Yes Was breast conservation surgery offered? If no, comment.: Yes (discussed) Was sentinel node biopsy offered? If no, comment.: Yes Was diagnosis confirmed by percutaneous core biopsy? If no, comment.: Yes Is patient mastectomy patient?: Yes Was a preop referral to reconstructive surgeon offered?: Yes Clinical Stage: [id number]+Her2- right breast invasive lobular cancer
[2023-04-14] MEDS ORDERED: SUCCINYLCHOLINE CHLORIDE 200 MG/10 ML VIAL IV ONE (12:11)
[2023-04-14] MEDS ORDERED: MIDAZOLAM 2 MG/2 ML VIAL ONE (12:11)
[2023-04-14] MEDS ORDERED: LIDOCAINE 1% INJ 10MG/ML (20 ML MDV) ONE (12:11)
[2023-04-14] MEDS ORDERED: PROPOFOL 10 MG/ML 20 ML VIAL IV ONE (12:11)
[2023-04-14] MEDS ORDERED: fentaNYL (PF) 50 MCG/ML 2 ML AMP ONE (12:11)
[2023-04-14] MEDS ORDERED: PHENYLEPHRINE 10 MG/ML 5 ML VIAL ONE (12:11)
[2023-04-14] MEDS ORDERED: ALBUTEROL INHALER 60 PUFF/8 GM INHALER (MHU) INHALATION ONE (12:11)
[2023-04-14] MEDS ORDERED: IV FLUID CONTINUATION 1,000 ML IV ONE (13:30)
--- NOTE | 2023-04-14 14:27 | MM ---
Electronically signed and approved by: Bryant Nelson D.O.
--- NOTE | 2023-04-14 15:51 | P.OP ---
Date of Procedure: 04/14/23 Preoperative Diagnosis: Right breast invasive lobular carcinoma Postoperative Diagnosis: Same Procedure(s) Performed: Right breast mastectomy, sentinel node biopsy, needle localization of the enlarged node resected, left mastectomy Anesthesia: MICHELA Surgeon: Felecia Long Estimated Blood Loss (ml): 30 IV fluids (ml): 1,100 Pathology: other (Bilateral breast, right sentinel node, right axillary contents) Condition: stable Disposition: same day Indications for Procedure: Invasive right lobular carcinoma Operative Findings: Malignancy right breast Description of Procedure: The patient is a 72-year-old white female diagnosed with a right breast invasive lobular carcinoma. She wished for bilateral mastectomies. The patient was seen first in the radiology department where needle localization of a suspicious node in the right axilla was performed as well as injection of radiotracer in the periareolar region on the right. The patient was then brought to the operative suite. Following induction of anesthesia the right axilla was interrogated. Radioactivity was identified. Both breasts were then prepped and draped in a sterile fashion. The right breast was approached initially. Superior and inferior skin flaps were developed. These were carried down to the pectoralis muscle. Dissection was performed from medial to lateral being careful to maintain hemostasis using the electrocautery device as well as the Harmonic scalpel. At the area of the axilla the breast was transected. The breast was marked with a short suture superior and a long suture lateral. The area of greatest radioactivity in the axilla was identified. Dissection was performed down into this area and this was consistent with the area of the needle localization wire was placed. The first lymph node removed had a 10 second count of 8099, a second sentinel node was removed with a 10 second count of 7033. The background count was 42. After we assured that hemostasis was attained and there were no other palpable nodes or radioactive nodes of concern the axillary dissection portion was completed. The wound was well irrigated. MANUEL drains were placed. Surgicel in powder form was placed. The deep tissues were closed with interrupted Vicryl sutures. This was followed with closure of the subcutaneous tissue with 3-0 Vicryl suture. This was followed by a 4-0 Monocryl subcuticular suture. A nylon skin suture was placed. The drains were secured with a nylon suture. Following this gowns and gloves were changed as well as instruments. The left breast was approached. Superior and inferior skin flaps were developed. These were carried down to the pectoralis muscle. Dissection was carried from medial to lateral being careful to maintain hemostasis using electrocautery device as well as the Harmonic scalpel. Dissection was performed to the lateral edge of the pectoralis muscle. The breast was then transected being careful to maintain hemostasis using the electrocautery device as well as the Harmonic scalpel. After we were assured that hemostasis was attained a MANUEL drain was placed. This was secured using a nylon suture. The wound was well irrigated. Surgicel in powder form was placed. The deep tissues were closed using 3-0 Vicryl suture interrupted. This was followed by a 3-0 Vicryl running subcutaneous suture. The 4-0 Monocryl subcuticular suture was placed. A nylon running suture was placed. All instrument and sponge counts were correct at the end of the case. The patient tolerated the procedure in stable condition.
[2023-04-14] MEDS ORDERED: NALOXONE 0.4 MG/ML 1 ML VIAL IV PRN (15:52)
[2023-04-14] MEDS ORDERED: ONDANSETRON 4 MG/2 ML VIAL IVP PRN (15:52)
[2023-04-14] MEDS ORDERED: HYDROcodone/APAP 5-325MG 1 EACH TAB PO PRN (15:52)
[2023-04-14] MEDS: SODIUM CHLORIDE 0.9% 1,000 ML IV SCH (17:23)
[2023-04-14] MEDS: HYDROmorphone 1 MG/ML 1 ML SYRINGE IVP PRN (18:44)
[2023-04-14] MEDS ORDERED: QUEtiapine 25 MG TAB PO SCH (21:00)
--- NOTE | 2023-04-14 21:33 | P.CONS ---
History of Present Illness - Reason for Consult Consult date: 04/14/23 Medical management Requesting physician: Feleica Long - Chief Complaint Breast surgery - History of Present Illness Pleasant 72-year-old patient who follows with Dr. Dr. Durán. 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 Cardiac catheterization a few years ago with no further intervention. Nurse called me from the floor for the consult and mentioned that patient been complaining of heartburn. It is unclear if this is a chest pain component. Given her history of questionable CAD I told the patient to be moved to the telemetry floor. When I did come to see the patient patient could not remember as she was recovering from postop anesthesia. Slight cough. Currently no chest pain. Patient has a dressing over the chest wall. Review of systems: GEN.: Tired EYES: None HEENT: None NECK: None RESPIRATORY: Occasional cough CARDIOVASCULAR: None GASTROINTESTINAL: Heartburn GENITOURINARY: None MUSCULOSKELETAL: Some joint pains LYMPHATICS: None HEMATOLOGICAL: None PSYCHIATRY: Bit forgetful NEUROLOGICAL: None Social history: Lives with her son and [id number] and her mother. Smoked for about 30 years stopped in 2021. Alcohol rarely. Physical examination: VITAL SIGNS: 97.6, 84, 16, 159/81, 98% on 3 L] GENERAL: BMI 28.1, laying in bed awake a bit tired. EYES: Pupils equal. Conjunctiva normal. HEENT: External appearance of nose and ears normal, oral cavity grossly normal. NECK: JVD not raised; masses not palpable. HEART: First and second heart sounds are normal; no edema. LUNGS: Respiratory rate normal; decreased breath sounds. ABDOMEN: Soft, nontender, liver spleen not palpable, no masses palpable. PSYCH: Able to answer questions appropriatelyl. MUSCULOSKELETAL:No Clubbing/cyanosis;muscles-grossly intact. Some OA NEUROLOGICAL: Cranial nerves grossly intact; no facial asymmetry, power and sensation grossly intact. LYMPHATICS: No lymph nodes palpable in the axilla and neck Assessment and plan: -Questionable chest pain versus reflux symptoms. Patient does not remember as she was still groggy from anesthesiology service. We'll keep the patient on telemetry overnight. Currently not complaining of any chest pain. -COPD in a prior smoker Symbicort, albuterol when necessary -Essential hypertension Amlodipine 2.5 mg a day -Hyperlipidemia Lipitor 20 mg a day -Anxiety depression Seroquel. Effexor XR -Right mastectomy, sentinel node biopsy, localization and large node resected, left mastectomy Resume all medications. Watch overnight. Telemetry. Discussed with patient. Thank you will follow Past Medical History Past Medical History: Atrial Fibrillation, Cancer, Chest Pain / Angina, COPD, CVA/TIA, Hyperlipidemia, Memory Impairment, Musculoskeletal Disorder, Osteoarthritis (OA) Additional Past Medical History / Comment(s): Degenerative Joint Disease, mild memory issues, hx A-Fib, no current issues. breast cancer. stent in head- hx arterial ischemic stroke ,placed on norvasc afterward History of Any Multi-Drug Resistant Organisms: None Reported Past Surgical History: Appendectomy, Heart Catheterization, Hysterectomy, Tonsillectomy Additional Past Surgical History / Comment(s): Heart catheterization X2, adhesions removed, bilateral cataracts removed with lens implants. stent place in head, colonoscopy Past Anesthesia/Blood Transfusion Reactions: No Reported Reaction Additional Past Anesthesia/Blood Transfusion Reaction / Comm: no blood transfusions Past Psychological History: Anxiety, Depression Additional Psychological History / Comment(s): . Smoking Status: Former smoker Past Alcohol Use History: Rare Additional Past Alcohol Use History / Comment(s): quit smoking 2021 varying amounts smoked for 30yrs Past Drug Use History: None Reported - Past Family History Father Family Medical History: Diabetes Mellitus Additional Family Medical History / Comment(s): Patient does not have any siblings. Patient has 2 children and a son recently had heart catheterization that showed subclinical blockage. Mother at age 59 from sepsis. Mother Family Medical History: Diabetes Mellitus, Hypertension Medications and Allergies Home Medications Medication Instructions Recorded Confirmed Type Albuterol Inhaler [Ventolin Hfa 2 puff INHALATION RT-Q6H 07/01/16 04/14/23 History Inhaler] Atorvastatin Calcium 20 mg PO DAILY 07/01/16 04/14/23 History Budesonide-Formot 160-4.5 Mcg 2 puff INHALATION RT-BID 07/01/16 04/14/23 History [Symbicort 160-4.5 Mcg Inhaler] Nitroglycerin Sl Tabs [Nitrostat] 0.4 mg SUBLINGUAL Q5M PRN #25 tab 07/05/16 04/14/23 Rx QUEtiapine [SEROquel] 25 mg PO HS 03/16/18 04/14/23 History Venlafaxine HCl ER [Effexor XR] 37.5 mg PO DAILY 03/16/18 04/14/23 History Aspirin 81 mg PO DAILY 01/09/23 04/09/23 History amLODIPine [Norvasc] 2.5 mg PO DAILY 01/12/23 04/14/23 History Allergies Allergy/AdvReac Type Severity Reaction Status Date / Time No Known Allergies Allergy Verified 04/14/23 09:28 Physical Exam Vitals: Vital Signs Temp Pulse Pulse Pulse Resp BP BP 04/14/23 18:59 87 16 137/79 04/14/23 18:29 82 16 157/88 04/14/23 17:59 78 16 157/82 04/14/23 17:44 82 16 156/74 04/14/23 17:29 82 16 156/81 04/14/23 17:14 97.6 F 84 16 159/81 04/14/23 16:50 88 16 154/75 04/14/23 16:34 88 16 149/82 04/14/23 16:19 97 F L 91 14 147/63 04/14/23 10:35 98.3 F 73 16 119/72 04/14/23 10:11 98.1 F 76 16 122/70 04/14/23 09:24 98.5 F 78 16 BP Pulse Ox 04/14/23 18:59 98 04/14/23 18:29 99 04/14/23 17:59 98 04/14/23 17:44 98 04/14/23 17:29 98 04/14/23 17:14 98 04/14/23 16:50 92 L 04/14/23 16:34 100 04/14/23 16:19 100 04/14/23 10:35 04/14/23 10:11 04/14/23 09:24 130/58 95 Intake and Output 04/14/23 04/14/23 04/14/23 06:59 14:59 22:59 Intake Total 1350 0 Output Total 30 Balance 1320 0 Intake: IV 1350 0 Output: Estimated Blood Loss 30 Other: Weight 72 kg 72 kg
[2023-04-14] MEDS: SYMBICORT 160-4.5 MCG INHALER INHALATION SCH (21:54)
[2023-04-14] MEDS: ALBUTEROL HFA INHALER INHALATION SCH (21:54)
[2023-04-14] MEDS: HEPARIN SODIUM,PORCINE 5,000 UNIT/ML 1 ML VIAL SQ SCH (22:13)
[2023-04-15] MEDS: ALBUTEROL HFA INHALER INHALATION SCH ×3 (02:06→13:26)
[2023-04-15] MEDS: SODIUM CHLORIDE 0.9% 1,000 ML IV SCH ×2 (03:23→11:59)
[2023-04-15] MEDS: HEPARIN SODIUM,PORCINE 5,000 UNIT/ML 1 ML VIAL SQ SCH ×2 (05:15→11:59)
[2023-04-15] MEDS: HYDROmorphone 1 MG/ML 1 ML SYRINGE IVP PRN (05:19)
[2023-04-15] MEDS: LACTATED RINGERS 1,000 ML IV SCH (06:55)
[2023-04-15] MEDS ORDERED: ASPIRIN 81 MG PO SCH (09:00)
[2023-04-15] MEDS ORDERED: amLODIPine 2.5 MG TAB PO SCH (09:00)
[2023-04-15] MEDS ORDERED: ATORVASTATIN 20 MG TAB PO SCH (09:00)
[2023-04-15] MEDS ORDERED: VENLAFAXINE HCL ER 37.5 MG CAP PO SCH (09:00)
[2023-04-15] MEDS: SYMBICORT 160-4.5 MCG INHALER INHALATION SCH (09:06)
[2023-04-15 09:44] LABS: Basophils % (A) 0 %; Eosinophils # (A) 0.1 k/uL (0-0.7); Eosinophils % (A) 1 %; HCT 45.4 % (34.0-46.0); HGB 13.8 gm/dL (11.4-16.0); Hypochromasia Slight; Lymphocytes % (A) 15 %; MCH 30.4 pg (25.0-35.0); MCHC 30.3 g/dL (31.0-37.0); MCV 100.1 fL (80.0-100.0); Mean Platelet Volume 7.5; Monocytes # (A) 0.5 k/uL (0-1.0); Monocytes % (A) 7 %; Neutrophils # (A) 5.3 k/uL (1.3-7.7); Neutrophils % (A) 77 %; Platelet Count 198 k/uL (150-450); RBC 4.54 m/uL (3.80-5.40); RDW 12.7 % (11.5-15.5)
--- NOTE | 2023-04-15 13:36 | P.PN ---
Subjective Progress Note Date: 04/15/23 Principal diagnosis: POD #1 bilateral mastectomy Ashley is a 72-year-old white female status post bilateral mastectomy. She had a right breast invasive lobular carcinoma. Postoperatively she has done well. Initially there was some concern she had some chest discomfort but she states this was incisional pain. She was seen by internal medicine and at this time she appears to be stable. Objective - Vital Signs Vital signs: Vital Signs Temp 98.0 F 04/15/23 07:40 Pulse 106 H 04/15/23 07:40 Resp 20 04/15/23 07:40 BP 120/72 04/15/23 07:40 Pulse Ox 93 L 04/15/23 07:40 FiO2 Intake & Output 04/14/23 04/15/23 04/15/23 18:59 06:59 18:59 Intake Total 1350 Output Total 30 40 30 Balance 1320 -40 -30 Weight 72 kg 72 kg Intake: IV 1350 Output: Drainage 40 30 Bilateral Breast 40 30 Estimated Blood Loss 30 Other: # Voids 2 - Constitutional General appearance: Present: cooperative - EENT Eyes: Present: EOMI ENT: Present: hearing grossly normal - Neck Neck: Present: normal ROM - Respiratory Respiratory: bilateral: CTA - Cardiovascular Rhythm: regular Heart sounds: normal: S1, S2 - Integumentary Integumentary Comment(s): Incision clean and dry bilateral Dressing change MANUEL output minimal: MANUEL lateral right breast 3 mL, medial right breast 15 mL, left breast 3 mL, the output is serous in nature - Psychiatric Psychiatric: Present: A&O x's 3, appropriate affect, intact judgment & insight - Labs CBC & Chem 7: 04/15/23 08:32 Labs: Abnormal Lab Results - Last 24 Hours (Table) 04/15/23 Range/Units 08:32 MCV 100.1 H (80.0-100.0) fL MCHC 30.3 L (31.0-37.0) g/dL Assessment and Plan Assessment: Impression: Patient is stable at this time she is doing well postop day #1 Plan: Discharge home if okay with internal medicine Follow-up Dr. Forrest in 1 week Teach drain care
--- NOTE | 2023-04-15 13:39 | P.DS ---
Providers Attending physician: Felecia Long Consults: 04/14/23 15:54 Consult Physician Routine Consulting Provider: Chaz Chicas Consult Reason/Comments: medical managment Do you want consulting provider notified?: Yes Primary care physician: Lyn Durán Plan - Discharge Summary Discharge Rx Participant: No New Discharge Prescriptions: Continue Albuterol Inhaler [Ventolin Hfa Inhaler] 2 puff INHALATION RT-Q6H Atorvastatin Calcium 20 mg PO DAILY Budesonide-Formot 160-4.5 Mcg [Symbicort 160-4.5 Mcg Inhaler] 2 puff INHALATION RT-BID Nitroglycerin Sl Tabs [Nitrostat] 0.4 mg SUBLINGUAL Q5M PRN #25 tab PRN Reason: Chest Pain QUEtiapine [SEROquel] 25 mg PO HS Venlafaxine HCl ER [Effexor XR] 37.5 mg PO DAILY amLODIPine [Norvasc] 2.5 mg PO DAILY Aspirin 81 mg PO DAILY Discharge Medication List Albuterol Inhaler [Ventolin Hfa Inhaler] 2 puff INHALATION RT-Q6H 07/01/16 [History] Atorvastatin Calcium 20 mg PO DAILY 07/01/16 [History] Budesonide-Formot 160-4.5 Mcg [Symbicort 160-4.5 Mcg Inhaler] 2 puff INHALATION RT-BID 07/01/16 [History] Nitroglycerin Sl Tabs [Nitrostat] 0.4 mg SUBLINGUAL Q5M PRN #25 tab 07/05/16 [Rx] QUEtiapine [SEROquel] 25 mg PO HS 03/16/18 [History] Venlafaxine HCl ER [Effexor XR] 37.5 mg PO DAILY 03/16/18 [History] Aspirin 81 mg PO DAILY 01/09/23 [History] amLODIPine [Norvasc] 2.5 mg PO DAILY 01/12/23 [History] Follow up Appointment(s)/Referral(s): Felecia Long MD [STAFF PHYSICIAN] - 1 Week Activity/Diet/Wound Care/Special Instructions: Do not drive until seen by Dr. Forrest Teach drain care May shower after 48 hours Discharge Disposition: HOME WITH HOME HEALTH SERVICES
[2023-04-15 15:16] VITALS: BP 103/66; PULSE 112; RESP 19; TEMP 98.7
--- NOTE | 2023-04-16 20:00 | P.PN ---
Progress Note - Text Progress Note Date: 04/15/23 - Chief Complaint Breast surgery - History of Present Illness Pleasant 72-year-old patient who follows with Dr. Dr. Durán. 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 Cardiac catheterization a few years ago with no further intervention. Nurse called me from the floor for the consult and mentioned that patient been complaining of heartburn. It is unclear if this is a chest pain component. Given her history of questionable CAD I told the patient to be moved to the telemetry floor. When I did come to see the patient patient could not remember as she was recovering from postop anesthesia. Slight cough. Currently no chest pain. Patient has a dressing over the chest wall. April 15: Doing better. Did tolerate some diet. Has been out of bed. Some pain at the operative site. No heartburn. No chest pain. Breathing stable. Medications reviewed Social history: Lives with her son and spxaqjos-[id number] and her mother. Smoked for about 30 years stopped in 2021. Alcohol rarely. Physical examination: VITAL SIGNS: 98.7, 112, 19, 103/66, 95% room air GENERAL: A declining, comfortable. EYES: Pupils equal. Conjunctiva normal. HEENT: External appearance of nose and ears normal, oral cavity grossly normal. NECK: JVD not raised; masses not palpable. HEART: First and second heart sounds are normal; no edema. LUNGS: Respiratory rate normal; decreased breath sounds. ABDOMEN: Soft, nontender, liver spleen not palpable, no masses palpable. PSYCH: Able to answer questions appropriatelyl. MUSCULOSKELETAL:No Clubbing/cyanosis;muscles-grossly intact. Some OA INVESTIGATIONS, reviewed in the clinical context: April ARDS: White count 7 hemoglobin 13.8 platelets 198 Assessment and plan: -Anterior chest wall pain was musculoskeletal from surgery -COPD in a prior smoker Symbicort, albuterol when necessary -Essential hypertension Amlodipine 2.5 mg a day -Hyperlipidemia Lipitor 20 mg a day -Anxiety depression Seroquel. Effexor XR -Right mastectomy, sentinel node biopsy, localization and large node resected, left mastectomy -DO NOT RESUSCITATE Discussed. Follow with PCP. Thank you
--- NOTE | 2023-04-24 11:23 | USB ---
Prior Study Comparison: 07/04/2021 Bilateral Screening Mammogram, [facility]. 01/09/2023 Right MG 3D diag mammo w/cad RT, [facility]. 01/20/2023 Right MG diagnostic mammo RT wo CAD, [facility]. Pathology Description: Location: axillary tail. Needle Type: 7 cm Kopan The procedure was explained to the patient and all questions were answered. The potential risks including but not limited to bleeding, infection, and potential need for additional work up were discussed. Informed, written consent was obtained. The correct site was marked. A time out was performed. An ultrasound guided localization was performed for the most suspicious right axial lymph node. This was described on the previous MRI report. The skin was prepped in the usual manner. Local anesthetic was administered to the access site using approximately 8 mL of lidocaine. A wire was placed through the right axial lymph node under constant ultrasound surveillance. The abnormality was approached from an inferior. Once the needle was documented to be in the correct location, the wire was deployed. The needle was removed. Pressure was held at the biopsy site for hemostasis. Steri-strips were applied to the access site. The patient tolerated the procedure well and was sent to the preop area. No post procedure mammogram was performed. IMPRESSION: Successful ultrasound guided localization of most suspicious right axillary lymph node. Pathology Results: Result: Malignant, Invasive lobular carcinoma. A. RIGHT SENTINEL NODE #1: Two lymph nodes negative for metastasis. CK7 and KYM immunostains performed on blocks A1, A2, and A3 are confirmatory (controls appropriate). B. RIGHT SENTINEL NODE #2: One of four lymph nodes positive for isolated tumor cells (ITC). CK7 and KYM immunostains performed on blocks B1 through B16 are confirmatory (controls appropriate). C. RIGHT BREAST, MASTECTOMY: Invasive lobular carcinoma, margins negative. See Surgical Pathology Cancer Case Summary. D. LEFT BREAST, MASTECTOMY: Benign breast with fibrocystic changes. Overall Assessment: Malignant Management: Surgical Consultation of the right breast. Electronically signed and approved by: Bryant Nelson D.O.
== END 2023-04-15 15:28 | disposition home health service (06) ==
LOC: OR 08:28 → 4FBP 16:06 → 4SSUR 19:50 → OR 04-15 15:28
PROVIDERS: ATTEND Surgery
DX: C50.611 Malignant neoplasm of axillary tail of right female breast (principal); N60.12 Diffuse cystic mastopathy of left breast; Z90.11 Acquired absence of right breast and nipple; I10 Essential (primary) hypertension; E78.5 Hyperlipidemia, unspecified; J44.9 Chronic obstructive pulmonary disease, unspecified; I63.9 Cerebral infarction, unspecified; I48.91 Unspecified atrial fibrillation; I20.9 Angina pectoris, unspecified; M19.90 Unspecified osteoarthritis, unspecified site; M79.9 Soft tissue disorder, unspecified; F17.210 Nicotine dependence, cigarettes, uncomplicated; F32.A Depression, unspecified; F41.9 Anxiety disorder, unspecified; Z95.5 Presence of coronary angioplasty implant and graft; Z79.51 Long term (current) use of inhaled steroids; Z79.52 Long term (current) use of systemic steroids; Z79.899 Other long term (current) drug therapy; Z83.3 Family history of diabetes mellitus; Z85.3 Personal history of malignant neoplasm of breast; Z98.49 Cataract extraction status, unspecified eye; Z90.710 Acquired absence of both cervix and uterus; Z98.890 Other specified postprocedural states
CPT/HCPCS: 19303; 38900; 38525; 94640 ×2; 93005; 85025; 88342; 88307; 88341; 76098; 19285; 38792; C1819; A9520; J2250; J0330; J1644 ×3; J1100; J0690; J2405; J2001; J3010; J1170 ×2; J2704; J2371

== ENCOUNTER → 2023-04-23 | Outpatient (CLI) | payer MEDICARE ==
[2023-04-23 13:32] VITALS: BP 99/64; PULSE 85; RESP 17; TEMP 97.8
--- NOTE | 2023-04-23 13:49 | P.PN ---
Progress Note - Text Progress Note Date: 04/23/23 Ashley is a 72 year old female status post bilateral mastectomy with right nodes removed 04-14-23. Tumor invasive lobular 4.5 CM with 1 of 6 nodes with isolated tumor cells. The left breast had no cancer. She has some drainage around the drain on the left for several days. right two drains: drain 1: minimal output drain 2: minimal output drian 3 left side: minimal output Lungs: Clear Heart: Regular rate and rhythm Incisions clean and dry Right breast incision has some necrosis on the skin edge at the lateral aspect of the incision, MANUEL drain left side removed Impression: Seroma left chest wall/drain and removal of drain No seroma right incision some necrosis of the lateral skin edges Plan: Remove all MANUEL drains Aspiration seroma left chest wall Following informed consent the area of seroma in the left chest wall was prepped using alcohol an 18-gauge needle on a 60 mL syringe was used to aspirate approximately 200 mL of fluid. Additionally after removal of the drain on the left side an additional 200 mL of fluid came from the drain site. There was complete resolution of the seroma Removal of sutures left chest wall Removal of MANUEL drains right chest and removal of suture right chest wall Follow-up medical oncology Follow-up radiation oncology Follow-up here 2 weeks CC: Dr. Durán
== END ==
LOC: WWCWWP 12:29
PROVIDERS: ATTEND Surgery
DX: Z04.9 Encounter for examination and observation for unspecified reason (principal); M79.81 Nontraumatic hematoma of soft tissue; Z90.13 Acquired absence of bilateral breasts and nipples; Z79.82 Long term (current) use of aspirin

== ENCOUNTER → 2023-05-14 | Outpatient (CLI) | payer MEDICARE ==
[2023-05-14 10:37] VITALS: BP 110/67; PULSE 110; RESP 17; TEMP 97.6
--- NOTE | 2023-05-14 10:58 | P.PN ---
Progress Note - Text Progress Note Date: 05/14/23 Ashley is a 72 year old female status post bilateral mastectomy with right nodes removed 04-14-23. Tumor invasive lobular 4.5 CM with 1 of 6 nodes with isolated tumor cells. The left breast had no cancer. She is complaining of fluid draining from the left lateral aspect of the incision several days ago. She states she has pain lifting her right arm. Lungs: Clear Heart: Regular rate and rhythm Incisions clean and dry Right breast incision has some necrosis on the skin edge at the lateral aspect of the incision Decreased mobility right arm Impression: Seroma bilateral chest wall Plan: Aspiration seroma bilateral chest wall Amended physical therapy which the patient has declined at this time Following informed consent the area of seroma in the left chest wall was prepped using alcohol an 18-gauge needle on a 60 mL syringe was used to aspirate approximately 125 mL of fluid. There was complete resolution of the seroma The right chest wall was prepped using alcohol. A 60 mL syringe was used to aspirate 180 mL of clear fluid. Follow-up medical oncology Follow-up radiation oncology Follow-up here 1 week CC: Dr. Durán Additional CC's: Lyn Durán
== END ==
LOC: WWCWWP 10:14
PROVIDERS: ATTEND Surgery
DX: Z12.31 Encounter for screening mammogram for malignant neoplasm of breast (principal); L76.82 Other postprocedural complications of skin and subcutaneous tissue; F17.200 Nicotine dependence, unspecified, uncomplicated

== ENCOUNTER → 2023-05-21 | Outpatient (CLI) | payer MEDICARE ==
[2023-05-21 15:11] VITALS: BP 119/80; PULSE 66; RESP 18; TEMP 97.6
--- NOTE | 2023-05-21 15:51 | P.PN ---
Progress Note - Text Progress Note Date: 05/21/23 05/14/23 Ashley is a 72 year old female status post bilateral mastectomy with right nodes removed 04-14-23. Tumor invasive lobular 4.5 CM with 1 of 6 nodes with isolated tumor cells. The left breast had no cancer. She is complaining of fluid draining from the left lateral aspect of the incision several days ago. She states she has pain lifting her right arm. Lungs: Clear Heart: Regular rate and rhythm Incisions clean and dry Right breast incision has some necrosis on the skin edge at the lateral aspect of the incision Total aspect of left incision has some necrosis as well Decreased mobility right arm Impression: Seroma bilateral chest wall; necrosis lateral aspect of incision right chest wall Plan: Debridement of area of necrosis right incision and lateral aspect of left incision Amended physical therapy which the patient has declined at this time Following informed consent the area of necrosis in the right side was prepped using Betadine. 1% lidocaine was used to anesthetize the area of concern. The area of necrosis was debated. This was approximately 3 cm in length by 8 mm in width. Following this some fluid was expressed from the wound and the incision was closed using a 4-0 nylon suture. The area of the left incision was then approached. Using Betadine the area was prepped. One percent lidocaine was used to anesthetize the area of concern. The area of necrosis was to be a laterally. The incision was reapproximated using 3-0 nylon suture. In the fluid in the area was expressed prior to this. The patient tolerated this in stable condition. Follow-up medical oncology Follow-up radiation oncology Follow-up here next week CC: Dr. Durán
== END ==
LOC: WWCWWP 14:39
PROVIDERS: ATTEND Surgery
DX: I49.9 Cardiac arrhythmia, unspecified (principal); L76.82 Other postprocedural complications of skin and subcutaneous tissue; I96 Gangrene, not elsewhere classified; F17.200 Nicotine dependence, unspecified, uncomplicated

== ENCOUNTER → 2023-05-22 | Outpatient (CLI) | payer MEDICARE, OTHER ==
--- NOTE | 2023-05-22 12:03 | BD ---
EXAMINATION TYPE: Axial Bone Density DATE OF EXAM: 05/22/2023 CLINICAL HISTORY: 72 years old Female. 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 Type 1 Diabetes: no 2. Hyperthyroidism: no 3. Menopause before 45: no 4. Malnutrition: no 5. Chronic liver disease: no Rheumatoid Arthritis: no Current Tobacco Use: no RISK FACTORS HISTORY OF: Hip Fracture (Right/Left): no Spine Fracture: no History of Wrist Fracture: no Surgery to Spine/Hip(right/left)/Wrist (right/left): no Family History of Osteoporosis: no Active: no Diet low in dairy products/other sources of calcium: yes Postmenopausal woman: yes Take estrogen and/or progesterone medications: no Lost more than 2 inches in height since high school: no Frequent falls: no Poor Health: no Hyperparathyroidism: no Adrenal Insufficiency: no MEDICATIONS: Prednisone or other steroids: no Thyroid Medications: no Osteoporosis Medications: no Additional Medications: BP Meds, Cholesterol Meds, Anxiety Meds, Multi Vit Additional History: Breast Ca. 2022 EXAM MEASUREMENTS: Bone mineral densitometry was performed using the [employer] System. Bone mineral density as measured about the Lumbar spine is: ----- L1-L4(G/cm2): 1.491 T Score Values are as follows: ----- L1: 1.7 ----- L2: 2.1 ----- L3: 3.1 ----- L4: 3.0 ----- L1-L4: 2.6 Z Score Values are as follows: ----- L1: 3.3 ----- L2: 3.7 ----- L3: 4.6 ----- L4: 4.6 ----- L1-L4: 4.2 Bone mineral density has: increased 4.3% since study of: 05/17/2018 Bone mineral density about the R hip (g/cm2): 0.753 Bone mineral density about the L hip (g/cm2): 0.783 T Score values are as follows: -----R Neck: -1.5 -----L Neck: -1.7 -----R Total: -2.0 -----L Total: -1.8 Z Score values are as follows: -----R Neck: 0.2 -----L Neck: -0.1 -----R Total: -0.6 -----L Total: -0.4 Bone mineral density has: decreased -3.5 % since study of: 05/17/2018 FRAX%s: The graph provided illustrates a 10.5% chance for a major osteoporotic fx and a 1.7% chance f or the hips probability for fx in 10 years time. IMPRESSION: Osteopenia (T Score between -2.5 and -1). There is slightly increased risk of fracture and the patient may be considered for treatment. Re-Screen 2-5 years. NOTE: T-SCORE=SD OF THE YOUNG ADULT MEAN.
== END | disposition home or self-care (01) ==
LOC: RADBDWWP 09:21
PROVIDERS: ATTEND Internal Medicine
DX: C50.411 Malignant neoplasm of upper-outer quadrant of right female breast (principal); M85.89 Other specified disorders of bone density and structure, multiple sites; J44.9 Chronic obstructive pulmonary disease, unspecified; E78.5 Hyperlipidemia, unspecified; Z71.3 Dietary counseling and surveillance; Z78.0 Asymptomatic menopausal state
CPT/HCPCS: 77080

== ENCOUNTER → 2023-05-25 | Outpatient (CLI) | payer MEDICARE, OTHER ==
[2023-05-25 13:36] VITALS: BP 101/65; PULSE 115; RESP 18; TEMP 98.2
--- NOTE | 2023-05-25 14:44 | P.PN ---
Progress Note - Text Progress Note Date: 05/25/23 05/14/23 Ashley is a 72 year old female status post bilateral mastectomy with right nodes removed 04-14-23. Tumor invasive lobular 4.5 CM with 1 of 6 nodes with isolated tumor cells. The left breast had no cancer. She is complaining of fluid draining from the left lateral aspect of the incision several days ago. She states she has pain lifting her right arm. Lungs: Clear Heart: Regular rate and rhythm Incisions clean and dry Right breast incision is healing well at this time, left breast incision is also healing well There is no seroma on either side, she did have some serous drainage however from the left side recently Decreased mobility right arm Impression: Patient doing well at this time Plan: Seroma stay aspirated on today's examination, patient to follow up later this week, if she is doing well she will call and follow-up in 2 weeks recommended physical therapy which the patient has declined at this time Follow-up medical oncology Follow-up radiation oncology Follow-up here next week CC: Dr. Durán
== END ==
LOC: WWCWWP 13:21
PROVIDERS: ATTEND Surgery
DX: F17.200 Nicotine dependence, unspecified, uncomplicated (principal); Z90.13 Acquired absence of bilateral breasts and nipples

== ENCOUNTER → 2023-05-29 | Outpatient (CLI) | payer MEDICARE, OTHER ==
[2023-05-29 09:15] VITALS: BP 115/78; PULSE 76; RESP 17; TEMP 98.3
--- NOTE | 2023-05-29 10:17 | P.PN ---
Progress Note - Text Progress Note Date: 05/29/23 05-29-23 Ashley is a 72 year old female status post bilateral mastectomy with right nodes removed 04-14-23. Tumor invasive lobular 4.5 CM with 1 of 6 nodes with isolated tumor cells. The left breast had no cancer. She had any fluid draining sense her last visit. Lungs: Clear Heart: Regular rate and rhythm Incisions clean and dry Right breast incision is healing well at this time, left breast incision is also healing well There is no obvious seroma on either side. Several of the sutures in the lateral right incision pulling out and these were removed, the wound was packed. Several sutures in the lateral left incision pulling out these were removed and the wound was packed. Decreased mobility right arm note medical oncology 05-25-23 reviewed will start anastrazole Impression: Patient doing well at this time Plan: Debridement of area where her sutures were pulling out bilaterally Following informed consent the area of necrosis on both lateral aspects of the incisions were debrided and the wounds were packed the patient tolerated this without difficulty Healthcare Patient to follow up in 1 week Follow-up medical oncology Follow-up radiation oncology Follow-up here next week CC: Dr. Durán Additional CC's: Lyn Durán
== END ==
LOC: WWCWWP 08:48
PROVIDERS: ATTEND Surgery
DX: F17.200 Nicotine dependence, unspecified, uncomplicated (principal); Z85.3 Personal history of malignant neoplasm of breast; Z90.13 Acquired absence of bilateral breasts and nipples; Z74.09 Other reduced mobility

== ENCOUNTER → 2023-06-09 | Outpatient (CLI) | payer MEDICARE, OTHER ==
--- NOTE | 2023-06-09 14:45 | P.PN ---
Progress Note - Text Progress Note Date: 06/09/23 Ashley is a 72 year old female status post bilateral mastectomy with right nodes removed 04-14-23. Tumor invasive lobular 4.5 CM with 1 of 6 nodes with isolated tumor cells. The left breast had no cancer. She has not had any fluid draining since her last visit. Lungs: Clear Heart: Regular rate and rhythm Incisions clean and dry Bilateral lateral aspect of incisions packed be granulating well note medical oncology 05-25-23 reviewed will start anastrazole Impression: Patient doing well at this time Plan: Several sutures were removed wounds repacked Patient to follow up in 1 week Follow-up medical oncology Follow-up radiation oncology Follow-up here next week CC: Dr. Durán
== END ==
LOC: WWCWWP 11:54
PROVIDERS: ATTEND Surgery
DX: D24.1 Benign neoplasm of right breast (principal); F17.200 Nicotine dependence, unspecified, uncomplicated; Z90.13 Acquired absence of bilateral breasts and nipples

== ENCOUNTER → 2023-06-25 | Outpatient (CLI) | payer MEDICARE, OTHER ==
--- NOTE | 2023-06-25 15:11 | P.PN ---
Progress Note - Text Progress Note Date: 06/25/23 06/09/23 Ashley is a 72 year old female status post bilateral mastectomy with right nodes removed 04-14-23. Tumor invasive lobular 4.5 CM with 1 of 6 nodes with isolated tumor cells. The left breast had no cancer. She has not had any fluid draining since her last visit. Lungs: Clear Heart: Regular rate and rhythm Incisions clean and dry right breast incision some residual granulation tissue, nothing to pack Left breast incision lateral aspect completely healed note medical oncology 05-25-23 reviewed will start anastrazole Impression: Patient doing well at this time Plan: All sutures removed wound right chest wall repacked Patient to follow up 3 weeks Follow-up medical oncology Follow-up here 3 weeks CC: Dr. Durán
== END ==
LOC: WWCWWP 14:46
PROVIDERS: ATTEND Surgery
DX: F17.200 Nicotine dependence, unspecified, uncomplicated (principal); Z90.13 Acquired absence of bilateral breasts and nipples; Z85.3 Personal history of malignant neoplasm of breast; Z79.82 Long term (current) use of aspirin

== ENCOUNTER → 2023-07-17 | Outpatient (CLI) | payer MEDICARE, OTHER ==
[2023-07-17 15:07] VITALS: BP 136/81; PULSE 73; RESP 15; TEMP 97.9
--- NOTE | 2023-07-17 15:26 | P.PN ---
Progress Note - Text Progress Note Date: 07/17/23 07-17-23 Ashley is a 72 year old female status post bilateral mastectomy with right nodes removed 04-14-23. Tumor invasive lobular 4.5 CM with 1 of 6 nodes with isolated tumor cells. The left breast had no cancer. She has not had any fluid draining since her last visit. Lungs: Clear Heart: Regular rate and rhythm Incisions clean and dry right breast incision some residual granulation tissue, nothing to pack Left breast incision lateral aspect completely healed, fungal infection in the lateral aspect of the wound note medical oncology 05-25-23 reviewed will start anastrazole note medical oncology 07-09-23 reviewed patient is having some symptoms with asantrazole of fatigue but has decided to continue this Impression: Patient doing well at this time Plan: Dressings bilateral lateral aspects of the incisions Patient to follow up 1 month Telfa to the granulation tissue on bilateral lateral aspects of the incisions Nystatin to the left lateral incision Follow-up medical oncology CC: Dr. Durán Additional CC's: Lyn Durán
== END ==
LOC: WWCWWP 14:30
PROVIDERS: ATTEND Surgery
DX: N63.10 Unspecified lump in the right breast, unspecified quadrant (principal); L92.9 Granulomatous disorder of the skin and subcutaneous tissue, unspecified; R53.83 Other fatigue; B37.89 Other sites of candidiasis; F17.200 Nicotine dependence, unspecified, uncomplicated; Z85.3 Personal history of malignant neoplasm of breast; Z90.13 Acquired absence of bilateral breasts and nipples; Z79.82 Long term (current) use of aspirin; Z98.890 Other specified postprocedural states

== ENCOUNTER → 2023-08-27 | Outpatient (CLI) | payer MEDICARE, OTHER ==
--- NOTE | 2023-08-27 15:11 | P.PN ---
Progress Note - Text Progress Note Date: 08/27/23 07-17-23 Ashley is a 72 year old female status post bilateral mastectomy with right nodes removed 04-14-23. Tumor invasive lobular 4.5 CM with 1 of 6 nodes with isolated tumor cells. The left breast had no cancer. She has not had any fluid draining since her last visit. Lungs: Clear Heart: Regular rate and rhythm Incisions clean and dry right breast incision fully healed Left breast incision lateral aspect completely healed, fungal infection in the lateral aspect of the wound healed She was seen by DR. Carvalho and in on anestrazole Impression: Patient doing well at this time fully healed at this time Plan: Patient to follow up 4 months, patient to call sooner any concerns given script for post mastectomy bra Follow-up medical oncology CC: Dr. Durán Additional CC's: Lyn Durán
[2023-08-27 15:44] VITALS: BP 122/65; PULSE 79; RESP 15; TEMP 98
== END ==
LOC: WWCWWP 14:08
PROVIDERS: ATTEND Surgery
DX: Z04.89 Encounter for examination and observation for other specified reasons (principal); N63.10 Unspecified lump in the right breast, unspecified quadrant; B48.8 Other specified mycoses; F17.200 Nicotine dependence, unspecified, uncomplicated; Z85.3 Personal history of malignant neoplasm of breast; Z98.890 Other specified postprocedural states; Z90.13 Acquired absence of bilateral breasts and nipples

== ENCOUNTER → 2023-12-25 | Outpatient (CLI) | payer MEDICARE, OTHER | LOC: WWCWWP 14:38 | PROVIDERS: ATTEND Surgery | DX: Z53.9 Procedure and treatment not carried out, unspecified reason (principal) ==

== ENCOUNTER → 2024-03-10 | Outpatient (CLI) | payer MEDICARE, OTHER ==
[2024-03-10 14:28] VITALS: BP 101/67; PULSE 99; RESP 17; TEMP 97.6
--- NOTE | 2024-03-10 14:48 | P.PN ---
Subjective Progress Note Date: 03/10/24 04/01/23 Subjective Progress Note Date: 04-01-23 Ashley is a 73 year old white female seen in consultation for Dr. Allen regarding a right breast mass. She had a bilateral mammogram on 07-08-22 which was BIRAD 2. She than had a right breast ultrasound on 11-06-22 which was BIRAD 1. She states the right breast became more dominant with greatest area noted in the lateral aspect of the breast. She states now her left breast also feels like it is becoming more full. She does have pain with pressure in the lateral aspect of the right breast. She is not complaining of any nipple discharge or skin changes. She is not complaining of any recent trauma or infection in the breast. She has never had any surgery on her breast. She has not had any recent changes in medications. She has not changed any caffeine intake, or nicotine use. She does vape daily. The patient on underwent ultrasound guided core biopsy of the right breast. Pathology revealed an invasive lobular carcinoma, G2, ER positive, MD positive, HER-2 negative. The size of the lesion could not be fully evaluated secondary to the obscure findings on ultrasound. This was reviewed with Dr. Noland and an MRI was ordered. The patient had a PET scan which was negative, and she underwent a MRI of both breast. The MRI revealed 1 low-lying right axillary node borderline enlarged to 10 mm in the short axis, and disease which was approximately 5.8 x 7.1 cm in the right breast. The left breast did not show any lesions of concern. I have called and discussed this with the patient. At this time the patient would like to undergo a bilateral mastectomy with a right breast needle localization of the lymph node of concern if it can be seen on ultrasound and sentinel node biopsy possible axillary node dissection on the right. [place] [id number]. She underwent a bilateral mastectomy on 04-14-23 invasive tumor 4.5 CM with 1 of 6 nodes + with isolated tumor cells the left breast had no cancer She was seen by Dr. Carvalho and is on annestrazole she is tolerating this without difficulty She was not recommended to have radiation therapy caffeine: 10 cups coffee/day; 2 bottles 20oz diet pepsi/day nicotine: vape daily, used to smoke stopped 1 year ago; used to smoke 1 PPD chocolate: occasional BCP: 25 years hormones: none Note Dr. Durán reviewed 11-11-22 Family History: negative for cancer Hormonal History: menarche: 15 , breast fed: no, age at first : 21 menopause: in her 40's Surgical history: hysterectomy, left ovaries tonsil stent in head; 2 aneurysms Bilateral cataract removal Medical History: anxiety/depression high cholesterol ? atrial fibrillation Social History: nicotine: as above alcohol: none drugs: none - Constitutional Constitutional: Denies chills, Denies fever - EENT Eyes: denies blurred vision, denies pain Ears: deny: decreased hearing, tinnitus Ears, nose, mouth and throat: Reports headache - Breasts Breasts: bilateral: as per HPI - Cardiovascular Cardiovascular: Denies chest pain, Denies shortness of breath - Respiratory Comment: COPD Respiratory: Reports cough - Gastrointestinal Gastrointestinal: Denies abdominal pain, Denies diarrhea, Denies nausea, Denies vomiting - Genitourinary (Female) Genitourinary: Denies dysuria, Denies hematuria - Menstruation Menstruation: Reports postmenopausal - Musculoskeletal Comment: back pain Musculoskeletal: Denies myalgias - Integumentary Integumentary: Denies pruritus, Denies rash - Neurological Neurological: Denies numbness, Denies weakness - Psychiatric Psychiatric: Reports anxiety, Reports depression - Endocrine Endocrine: Denies fatigue, Denies weight change - Hematologic/Lymphatic Comment: baby aspirin stints in brain - Allergic/Immunologic Allergic/Immunologic: Reports as per HPI Past Medical History Past Medical History: Atrial Fibrillation, Chest Pain / Angina, COPD, Hyperlipidemia, Memory Impairment, Musculoskeletal Disorder, Osteoarthritis (OA) Additional Past Medical History / Comment(s): Degenerative Joint Disease, "terrible memory", hx A-Fib, no current issues. History of Any Multi-Drug Resistant Organisms: None Reported Past Surgical History: Appendectomy, Heart Catheterization, Hysterectomy, Tonsillectomy Additional Past Surgical History / Comment(s): Heart catheterization X2, adhesions removed, bilateral cataracts removed with lens implants. Past Anesthesia/Blood Transfusion Reactions: No Reported Reaction Past Psychological History: Anxiety, Depression Additional Psychological History / Comment(s): . Smoking Status: Current every day smoker Past Alcohol Use History: None Reported Additional Past Alcohol Use History / Comment(s): Patient is a smoker one pack per day for 40 years, currently down to 1 pack every 2 -2 1/2 days. Past Drug Use History: None Reported - Past Family History Father Family Medical History: Diabetes Mellitus Additional Family Medical History / Comment(s): Mother in his 60s from unknown reason. Patient does not have any siblings. Patient has 2 children and a son recently had heart catheterization that showed subclinical blockage. Mother at age 59 from sepsis. Mother Family Medical History: Diabetes Mellitus, Hypertension Medications and Allergies Home Medications Medication Instructions Recorded Confirmed Type Albuterol Inhaler [Ventolin Hfa 2 puff INHALATION RT-Q6H 07/01/16 01/09/23 History Inhaler] Atorvastatin Calcium 20 mg PO DAILY 07/01/16 01/09/23 History Budesonide-Formot 160-4.5 Mcg 2 puff INHALATION RT-BID 07/01/16 01/09/23 History [Symbicort 160-4.5 Mcg Inhaler] Nitroglycerin Sl Tabs [Nitrostat] 0.4 mg SUBLINGUAL Q5M PRN #25 tab 07/05/16 01/09/23 Rx QUEtiapine [SEROquel] 25 mg PO HS 03/16/18 01/09/23 History Venlafaxine HCl ER [Effexor XR] 37.5 mg PO DAILY 03/16/18 01/09/23 History Aspirin 81 mg PO DAILY 01/09/23 01/09/23 History Allergies Allergy/AdvReac Type Severity Reaction Status Date / Time codeine Allergy Nausea & Verified 01/09/23 12:58 Vomiting Tetanus Vaccines and Toxoid Allergy Swelling Verified 01/09/23 12:58 [Tetanus Vaccines & Toxoid] Objective - Vital Signs Vital signs: Vital Signs Temp 97.6 F 03/10/24 14:23 Pulse 99 03/10/24 14:23 Resp 17 03/10/24 14:23 BP 101/67 03/10/24 14:23 Pulse Ox 94 L 03/10/24 14:23 FiO2 Intake & Output 03/09/24 03/10/24 03/10/24 18:59 06:59 18:59 Weight 70.76 kg - Constitutional General appearance: Present: cooperative - EENT Eyes: Present: EOMI ENT: Present: hearing grossly normal - Neck Neck: Present: normal ROM - Respiratory Respiratory: bilateral: CTA - Cardiovascular Heart sounds: normal: S1, S2 - Integumentary Integumentary: Present: normal turgor - Musculoskeletal Musculoskeletal: Present: gait normal - Psychiatric Psychiatric: Present: A&O x's 3, appropriate affect, intact judgment & insight - Additional findings Additional findings: Chest wall examination: Patient is status post bilateral mastectomies Right chest wall: Incision clean and dry no evidence of any disease Right axilla: No adenopathy of concern Left chest wall: Incision clean and dry no evidence of any disease Left axilla: No adenopathy of concern Assessment and Plan Assessment: Impression: anxiety/depression high cholesterol ? atrial fibrillation invasive lobular cancer right breast; PET/CT no mets Plan: Examination in 6 months Patient to follow-up sooner any questions or concerns Continue anastrozole Continue to follow with medical oncology CC: bethanie
== END ==
LOC: WWCWWP 13:54
PROVIDERS: ATTEND Surgery
DX: C50.911 Malignant neoplasm of unspecified site of right female breast (principal); F32.A Depression, unspecified; F41.9 Anxiety disorder, unspecified; E78.00 Pure hypercholesterolemia, unspecified; F17.210 Nicotine dependence, cigarettes, uncomplicated; Z88.7 Allergy status to serum and vaccine; Z88.5 Allergy status to narcotic agent; Z17.0 Estrogen receptor positive status [ER+]

== ENCOUNTER → 2024-08-05 | Outpatient (CLI) | payer MEDICARE, OTHER ==
--- NOTE | 2024-08-06 08:04 | MR ---
INDICATION: Patient age:Female; 73 years old; Reason for study: R41.82 Altered mental status;; PHH. COMPARISON: PET CT 02/20/2023, MRI brain 02/15/2021. TECHNIQUE: Multi planar, multi sequence imaging was performed through the brain. The patient was then given 6.5 cc of Gadobutrol intravenously and multi planar, T1 fat-saturation images were obtained. FINDINGS: The león-white junctions, ventricular system, basal cisterns appear unremarkable. Age-appropriate cer ebral volume loss. Diffusion-weighted imaging shows no evidence of restricted diffusion to suggest ac hunter/subacute infarct. Intracranial arterial flow voids are maintained. Midline structures show no abn ormality. Increasing patchy and confluent areas of high T2/FLAIR signal intensity are seen within the subcortical and periventricular white matter. Additional involvement of the central alex. The suscep tibility weighted images several scattered foci of blooming artifact consistent with prior hemosideri n deposition. After administration of gadolinium, no abnormal enhancement is seen. The bone marrow signal is within normal limits. Bilateral aphakia. Mild mucosal thickening of the max illary sinuses and ethmoid sinuses. Nasal septum is deviated to the right of midline. IMPRESSION: 1. No evidence of intracranial mass, acute/subacute infarct, or abnormal enhancement. 2. Increasing moderate to advanced nonspecific white matter changes, likely related to small vessel i schemic disease. Other etiologies include demyelinating disease. No enhancement to suggest active dem yelination. [facility], , 08/06/2024 8:02 AM
== END | disposition home or self-care (01) ==
LOC: RADMRIMAIN 16:50
PROVIDERS: ATTEND Family Medicine
DX: R41.82 Altered mental status, unspecified (principal); R90.82 White matter disease, unspecified; H27.03 Aphakia, bilateral
CPT/HCPCS: 70553; A9585

== ENCOUNTER → 2024-08-23 | Outpatient (CLI) | payer MEDICARE, OTHER ==
--- NOTE | 2024-08-24 08:03 | US ---
EXAMINATION TYPE: US carotid duplex BILAT DATE OF EXAM: 08/23/2024 COMPARISON: MRI CLINICAL INDICATION: Female, 73 years old with history of R90.82 WHITE MATTER DISEASE I99.8 DISORD C IRCULAT; Pt states abnormal MRI Additional History: .... TECHNIQUE: Grayscale, color Doppler and spectral Doppler evaluation of the bilateral carotid systems and vertebral arteries. Indirect Doppler criteria was utilized. FINDINGS: EXAM MEASUREMENTS: RIGHT: Peak Systolic Velocity (PSV) cm/sec ----- Right CCA: 52.8 ----- Right ICA: 65.6 ----- Right ECA: 113 ICA/CCA ratio: 1.2 RIGHT: End Diastole cm/sec ----- Right CCA: 14.2 ----- Right ICA: 17.9 ----- Right ECA: 13.1 LEFT: Peak Systolic Velocity (PSV) cm/sec ----- Left CCA: 77.6 ----- Left ICA: 66.0 ----- Left ECA: 87.4 ICA/CCA ratio: 0.9 LEFT: End Diastole cm/sec ----- Left CCA: 16.1 ----- Left ICA: 17.2 ----- Left ECA: 10.8 VERTEBRALS (direction of flow): Right Vertebral: Antegrade Left Vertebral: Antegrade Rhythm: Normal [employer] NOTES: No significant stenosis seen Color Doppler imaging shows patency with blood flow throughout the carotid artery. Spectral waveforms are within normal limits. IMPRESSION: No evidence of hemodynamically significant stenosis. Criteria for Assigning % of Stenosis / Diameter reduction (Estimation based on the indirect measurements of the internal carotid artery velocities (ICA PSV). 1. Normal (no stenosis)=ICA PSV < 125 cm/s: ratio < 2.0: ICA EDV<40 cm/s. 2. Less than 50% stenosis=ICA PSV < 125 cm/s: ratio < 2.0: ICA EDV<40 cm/s. 3. 50 to 69% stenosis=ICA PSV of 125 to 230 cm/s: ration 2.0 ? 4.0: ICA EDV 40-100 cm/s. 4. Greater than 70% stenosis to near occlusion= ICA PSV > 230 cm/s: ratio > 4.0: ICA EDV > 100 cm/s. 5. Near occlusion= ICA PSV velocities may be low or undetectable: variable ratio and ICA EDV. 6. Total occlusion=unable to detect flow. [facility], , 08/24/2024 8:01 AM
== END | disposition home or self-care (01) ==
LOC: RADUSWWP 15:47
PROVIDERS: ATTEND Family Medicine
DX: R90.82 White matter disease, unspecified (principal); I99.8 Other disorder of circulatory system; R93.89 Abnormal findings on diagnostic imaging of other specified body structures
CPT/HCPCS: 93880